=== PATIENT | male | born 1940 | race Caucasian/White ===

== ENCOUNTER 2017-04-01 12:52 | Emergency (ER) | payer MEDICARE, SELFPAY ==
[2017-04-01 12:53] VITALS: BP 111/65; PULSE 58; RESP 25; TEMP 35.9; O2SAT 97; BMI 29.0
[2017-04-01 13:13] VITALS: BP 121/100; PULSE 67; RESP 18; O2SAT 96
--- NOTE | 2017-04-01 13:20 | RAD_ITS ---
STUDY: X-RAY CHEST REASON FOR EXAM: Male, 76 years old. One-week history of cough and shortness of breath. TECHNIQUE: PA and lateral views of the chest. COMPARISON: None. FINDINGS: Hyperinflation. No acute abnormality is seen. Mild degree of increased linear markings at the lung bases suggesting mild scarring. There is no demonstrated pleural abnormality. Normal size heart. Normal mediastinum and mackenzie. Normal visualized pulmonary arteries. There is atherosclerotic tortuosity of the aortic arch and descending thoracic aorta. There are diffuse degenerative changes of the visualized thoracic spine. Normal visualized ribs, clavicles, and shoulders. There is no demonstrated abnormality of the visualized soft tissue structures of the upper abdomen. RAD/Chest PA and Lateral IMPRESSION: Hyperinflation. Mild linear scarring at the lung bases. Electronically Signed: Brant Gray MD at 14:11 EST Tel [phone], Service support ,
[2017-04-01 13:30] VITALS: BP 144/66
[2017-04-01] MEDS: 0.9% Normal Saline 1,000 ML 1000 ML IV (13:44)
[2017-04-01 13:51] LABS: Absolute Lymphocyte Count 2.92 X10^3/ul (0.83-4.51); Absolute Neutrophil Count 2.7 X10^3/uL (2.0-7.7); Basophil# 0.02 X10^3/uL; Basophil% 0.3 % (0-1); Eosinophil# 0.03 X10^3/uL; Eosinophils% 0.5 % (0-5); Hematocrit 50.2 % (40-54); Hemoglobin 17.3 g/dl (13.0-16.5); Lymphocyte # 2.92 X10^3/ul (4.0); Lymphocyte % 44.6 % (19-41); Mean Corp Hgb Conc 34.5 g/gl (32-36); Mean Platelet Vol. 10.1 fl (6.2-12.0); Monocyte# 0.78 X10^3/uL; Monocyte% 11.9 % (0-10); Neutrophil # 2.72 X10^3/uL (2.7-7.7); Neutrophil % 41.6 % (47-70); POSITIVE COUNT NO; POSITIVE DIFFERENTIAL NO; POSITIVE MORPHOLOGY NO; Platelet Count 227 K/mm3 (150-450); RBC Distribution Width CV 12.9 % (11.6-14.6); RBC Distribution Width SD 40.8 fl (35.1-43.9); Red Blood Count 5.77 M/mm3 (4.6-6.2); White Blood Count 6.5 K/mm3 (4.4-11.0)
[2017-04-01 13:58] LABS: Anion Gap 11 (5-15); BUN 21 mg/dL (7-18); BUN/Creat Ratio 14.3 RATIO (10-20); Calcium,Total 9.2 mg/dL (8.5-10.1); Chloride 102 mmol/L (98-107); Creatinine, Serum 1.47 mg/dL (0.70-1.30); EST Glomerular Filtration Rate 49 mL/min (>60); Est Glom Filt Rate - Afr Amer 60 mL/min (>60); Estimated Creatinine Clearance 52.19 ml/min; Glucose 105 mg/dL (74-106); Potassium 3.7 mmol/L (3.5-5.1); Sodium Level 136 mmol/L (136-145)
--- NOTE | 2017-04-01 15:44 | ED.VISSUMM ---
- ER Visit Summary Date of Service: 04/01/17 Chief Complaint: Flulike symptoms that started 6-7 days ago History of Present Illness: The patient is a 76 M who has no significant medical problems presents with headache, myalgias and arthralgias, nonproductive cough, generalized weakness and headache that started last week. He did not get a flu vaccine this year. He is a non-smoker. He does complain of runny nose. He also complains of decreased appetite. He has been taking NSAIDs for his discomfort. Past medical history is unremarkable. Physical Examination: Vital signs are remarkable for elevated blood pressure 144/66. He appears ill but not toxic. Head is atraumatic normocephalic. Pupils are equal round reactive. Extraocular muscles are intact. TMs are pearly white with landmarks noted. Nares patent with clear drainage. Posterior pharynx without erythema or exudate. Uvula is midline. There is no dysphonia or dysphasia. Trachea is midline. There is no stridor with auscultation of the neck. Heart is regular without murmur, gallop or rub. S1 and S2 are normal. Lungs are clear to auscultation with good movement of air bilaterally. No rash or skin lesions noted. Neuro exam is nonfocal. Test Results: View chest x-ray was obtained and unremarkable. CBC is unremarkable. Creatinine is 1.47. Baseline is 1.02. Influenza is positive for type A. Emergency Department Course and Treatment: Because of patient's symptoms chest x-ray, blood work and influenza screen was obtained. Treatment Plan: She was informed to stop taking ibuprofen or Aleve since his creatinine is elevated. He was encouraged to drink more fluids and follow-up with Rae higuera in 5-7 days to have repeat blood work to assess his BUN and creatinine. Disposition: Discharge to home with appropriate home-going instructions Impression: 1. Influenza, type a 2. Renal insufficiency, acute This note was generated with [employer] dictation software. It may contain incorrect words, spelling, and punctuation that were not noted in review of the chart prior to signing ED Disposition - Plan for ED Patient: Disposition: Home or Assisted Living Chief Complaint: Weakness Instructions: ED Flu, ED Insufficiency Renal Referrals: Rae Simms [Primary Care Provider] - 5-7 Days Additional Instructions: You need to call Rae higuera for an appointment next week to have blood work drawn to assess your BUN and creatinine Do not take any ibuprofen or Aleve.
--- NOTE | 2017-04-01 15:49 | ED.DCSUM_ITS ---
- ER Visit Summary Date of Service: 04/01/17 Chief Complaint: Flulike symptoms that started 6-7 days ago History of Present Illness: The patient is a 76 M who has no significant medical problems presents with headache, myalgias and arthralgias, nonproductive cough, generalized weakness and headache that started last week. He did not get a flu vaccine this year. He is a non-smoker. He does complain of runny nose. He also complains of decreased appetite. He has been taking NSAIDs for his discomfort. Past medical history is unremarkable. Physical Examination: Vital signs are remarkable for elevated blood pressure 144 /66. He appears ill but not toxic. Head is atraumatic normocephalic. Pupils are equal round reactive. Extraocular muscles are intact. TMs are pearly white with landmarks noted. Nares patent with clear drainage. Posterior pharynx without erythema or exudate. Uvula is midline. There is no dysphonia or dysphasia. Trachea is midline. There is no stridor with auscultation of the neck. Heart is regular without murmur, gallop or rub. S1 and S2 are normal. Lungs are clear to auscultation with good movement of air bilaterally. No rash or skin lesions noted. Neuro exam is nonfocal. Test Results: View chest x-ray was obtained and unremarkable. CBC is unremarkable. Creatinine is 1.47. Baseline is 1.02. Influenza is positive for type A. Emergency Department Course and Treatment: Because of patient's symptoms chest x -ray, blood work and influenza screen was obtained. Treatment Plan: She was informed to stop taking ibuprofen or Aleve since his creatinine is elevated. He was encouraged to drink more fluids and follow-up with Rae higuera in 5-7 days to have repeat blood work to assess his BUN and creatinine. Disposition: Discharge to home with appropriate home-going instructions Impression: 1. Influenza, type a 2. Renal insufficiency, acute This note was generated with [employer] dictation software. It may contain incorrect words, spelling, and punctuation that were not noted in review of the chart prior to signing ED Disposition - Plan for ED Patient: Disposition: Home or Assisted Living Chief Complaint: Weakness Instructions: ED Flu, ED Insufficiency Renal Referrals: Rae Simms [Primary Care Provider] - 5-7 Days Additional Instructions: You need to call Rae higuera for an appointment next week to have blood work drawn to assess your BUN and creatinine Do not take any ibuprofen or Aleve.
[2017-04-01 15:59] VITALS: BP 114/66; BP 114/76; PULSE 98; RESP 16; O2SAT 98
[2017-04-01] MEDS: Acetaminophen 325 MG Tablet 650 MG PO (16:01)
== END 2017-04-01 16:02 | disposition home or self-care (01) ==
PROVIDERS: Emergency Provider Emergency Medicine; Family Provider Nurse Practitioner; PCP Nurse Practitioner
DX: J11.1 Influenza due to unidentified influenza virus with other respiratory manifestations (principal); N28.9 Disorder of kidney and ureter, unspecified
CPT/HCPCS: 71046; 80048; 85025; 87804; 99283; J7030

== ENCOUNTER 2018-02-19 10:18 | Inpatient (IN) | payer MEDICARE, SELFPAY ==
[2018-02-19] VITALS (11 sets, daily range): BP systolic 138–158; BP diastolic 97–119; PULSE 71–105; RESP 12–18; TEMP 36.6–36.7; O2SAT 95–96; BMI 30.2; BMI 29.9
--- NOTE | 2018-02-19 10:22 | ED.RN ---
PT TO ROOM . CALLED FOR EKG
--- NOTE | 2018-02-19 10:31 | RAD_ITS ---
STUDY: X-RAY CHEST REASON FOR EXAM: Male, 77 years old. TECHNIQUE: COMPARISON: April 01, 2017 FINDINGS: The lungs are clear and expanded. There is no demonstrated pleural abnormality. Normal size heart. Normal mediastinum and mackenzie. Normal visualized pulmonary arteries. There is mild tortuosity of the thoracic aorta. The visualized bony structures are intact except for mild hypertrophic changes of the dorsal spine. The trachea is in the midline. There is no demonstrated abnormality of the visualized soft tissue structures of the upper abdomen. RAD/Chest PA and Lateral IMPRESSION: Normal x-ray examination of the chest unchanged since April 01, 2017. Electronically Signed: Micheline Agustin, at 11:06 EST Tel , Service support ,
--- NOTE | 2018-02-19 10:31 | EKG12_ITS ---
Test Reason : PAIN Blood Pressure : / mmHG Vent. Rate : 109 BPM Atrial Rate : 097 BPM P-R Int : 000 ms QRS Dur : 080 ms QT Int : 332 ms P-R-T Axes : 000 -32 055 degrees QTc Int : 447 ms Atrial fibrillation with rapid ventricular response Left axis deviation Abnormal ECG Confirmed by GARO RAMOS, SIMIN ([id number]), telegraph editor EILEEN CALDERÓN ([id number]) on 02/24/2018 12:59:49 PM Referred By: KEVIN Confirmed By:SIMIN WYMAN MD
[2018-02-19 10:55] LABS: Absolute Lymphocyte Count 3.46 X10^3/ul (0.83-4.51); Absolute Neutrophil Count 3.7 X10^3/uL (2.0-7.7); Basophil# 0.05 X10^3/uL; Basophil% 0.6 % (0-1); Eosinophil# 0.22 X10^3/uL; Eosinophils% 2.6 % (0-5); Hematocrit 46.1 % (40-54); Hemoglobin 15.6 g/dl (13.0-16.5); Lymphocyte # 3.46 X10^3/ul (4.0); Lymphocyte % 41.4 % (19-41); Mean Corp Hgb Conc 33.8 g/gl (32-36); Mean Corpuscular Hgb 29.9 pg (27.0-32.0); Mean Corpuscular Volume 88.3 fL (80-94); Mean Platelet Vol. 9.7 fl (6.2-12.0); Monocyte# 0.81 X10^3/uL; Monocyte% 9.7 % (0-10); Neutrophil # 3.72 X10^3/uL (2.7-7.7); Neutrophil % 44.6 % (47-70); POSITIVE COUNT NO; POSITIVE DIFFERENTIAL NO; POSITIVE MORPHOLOGY NO; Platelet Count 243 K/mm3 (150-450); RBC Distribution Width CV 13.4 % (11.6-14.6); RBC Distribution Width SD 43.2 fl (35.1-43.9); Red Blood Count 5.22 M/mm3 (4.6-6.2); White Blood Count 8.4 K/mm3 (4.4-11.0)
[2018-02-19 11:10] LABS: Anion Gap 8 (5-15); BUN 12 mg/dL (7-18); BUN/Creat Ratio 11.5 RATIO (10-20); Calcium,Total 8.9 mg/dL (8.5-10.1); Chloride 109 mmol/L (98-107); Creatinine, Serum 1.04 mg/dL (0.70-1.30); EST Glomerular Filtration Rate 73 mL/min (>60); Est Glom Filt Rate - Afr Amer 89 mL/min (>60); Estimated Creatinine Clearance 72.58 ml/min; Glucose 107 mg/dL (74-106); Potassium 4.2 mmol/L (3.5-5.1); Sodium Level 142 mmol/L (136-145); Thyroid Stim Hormone (TSH) 0.92 uIU/mL (0.358-3.74)
[2018-02-19] MEDS: Metoprolol Tartrate 5 MG/5 ML Vial IV (11:12)
[2018-02-19] MEDS: Enoxaparin 120 MG/0.8 ML Syringe SC ×2 (11:12→22:09)
[2018-02-19 11:28] LABS: BNP,B-Type NATRIURETIC PEPTIDE 126.1 pg/mL (0-100)
--- NOTE | 2018-02-19 11:54 | ED.DCSUM_ITS ---
- ER Visit Summary Date of Service: 02/19/18 Chief Complaint: Atraumatic right shoulder pain, chest discomfort, weight gain, swelling in ankles and hands History of Present Illness: The patient is a 77 M who has no significant cardiac history and only has history of thyroid disease who presents with atraumatic right shoulder pain or months. He also reports intermittent anterior chest discomfort. He does not endorse that this is precipitated by activity or made worse with activity. He does report at times it is better with rest. He denies history of congestive heart failure. He denies orthopnea or PND. He does report shortness of breath but did not denies cough, orthopnea or PND. He states he may be is more short of breath with activity. The shortness of breath has been going on for 1-2 months. He reports a 10 pound weight gain over the past month and increased swelling of his ankles and hands over the past several weeks. He also complains of generalized weakness. He states his last TSH was elevated. His medication was adjusted. Physical Examination: Vital signs noted and remarkable for blood pressure of 148/107 heart rate per triage was 71 however monitor reveals A. fib with a rate varying between 110 and 125. Head is atraumatic normocephalic. Pupils are equal round reactive. Extraocular muscles are intact. TMs are pearly white with landmarks noted. Nares patent with no drainage. Posterior pharynx without erythema or exudate. Uvula is midline. There is no dysphonia or dysphasia. Trachea is midline. There is no stridor with auscultation of the neck. Heart is irregularly irregular and rapid. Lungs reveal fine rales left base posteriorly otherwise no auscultatory findings on lung exam. Abdomen soft nontender no palpable semester down bruit. There is bilateral pedal edema. Distal pulses are palpable. There is slight swelling of both hands. Patient is alert and oriented ?3. Motor is 5 over 5. Sensory is intact. DTRs are symmetric with no clonus or Babinski sign. Cranial 2 through 12 are intact. Cerebellar testing is normal. There is no leg pain, swelling, discoloration, asymmetry, leg vein distention or palpable cords on the distribution of deep venous system. Test Results: EKG reveals atrial fibrillation rate of 109. Chest x-ray reveals chronic changes with tortuous aorta. White count is normal. Troponin is normal. BNP is slightly elevated 126. TSH is 0.92. Emergency Department Course and Treatment: To evaluate patient's symptoms EKG was obtained, because of the A. fib and complaint of shortness of breath troponin was obtained to evaluate for ischemia and BNP to evaluate for possible CHF. Because he had an abnormal TSH TSH was repeated. CBC was obtained to assess white count as well as H&H. Electrode panel was obtained to assess citlali ctrolytes and more importantly renal function. Treatment Plan: Patient did receive metoprolol. Heart rate is improved. Disposition: PCU 23 observation for workup of new onset A. fib with RVR Impression: 1. A. fib with RVR, new onset 2. History of hypothyroidism, history of Graves' disease This note was generated with [employer] dictation software. It may contain incorrect words, spelling, and punctuation that were not noted in review of the chart prior to signing ED Disposition - Plan for ED Patient: Chief Complaint: General Illness Referrals: Rae Simms NP-C [Primary Care Provider] -
--- NOTE | 2018-02-19 12:55 | PCM.HP.STD ---
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 Qualified Code(s): E03.8 - Other specified hypothyroidism; E06.3 - Autoimmune thyroiditis (2) New onset a-fib Status: Acute (3) Atrial fibrillation with RVR Status: Acute (4) DM type 2 (diabetes mellitus, type 2) Status: Chronic Qualifiers: Diabetes mellitus assisted insulin use: without assisted use Chronic kidney disease stage: unspecified stage History of Present Illness Date of Admission: 02/19/18 Chief Complaint: Left shoulder pain - 1 day The patient is a 77 year old M with PMHx of Haylie's disease, on Synthroid comes in with complaints of left shoulder, anterior chest wall pain ongoing for some weeks. Patient had felt irregular heart rate. He noticed this morning that his heart rate was not showing up on his blood pressure machine. He has noticed that also the last couple of days. He feels that his hands and feet are slightly swollen and stiff. Denies any fever or chills or shortness of breath or diaphoresis or dizziness. He attributed his left shoulder and chest wall pain to have improved to relieve prove that was heavy several days ago. He had used the leaf blower consistently for weeks. In the emergency department, his temperature was 90 8F, heart rate of 71, respiratory is 18, SPO2 is 95% on room air, blood pressure is 148/107. His admitting blood work showed RBC count of 8.4, hemoglobin 15.6, platelet count of 243, BMP was essentially unremarkable. Troponins x1 was negative, BNP was 126.1, TSH 0.92. EKG showed atrial fibrillation, new onset, with RVR, heart rate 109. Past Medical History Past Medical History (Chronic Problems): Chronic Problems Hypothyroidism (Chronic) DM type 2 (diabetes mellitus, type 2) (Chronic) Allergies latex Allergy (Verified 02/19/18 10:21) Hives Home Medications: Ambulatory Orders Medication Instructions Recorded Levothyroxine Sodium [Synthroid] 175 mcg PO DAILY 04/01/17 Surgical History: appendectomy Psychiatric History: No pertinent psych hx Lives: Spouse/ Significant Other Smoking Status: Never smoker Tobacco Use: Non-smoker Alcohol: None Drugs: None - *Family History Maternal History Items: Diabetes, Stroke Paternal History Items: Hypertension Sibling History Items: Diabetes, Heart Disease Review of Systems Constitutional: Reports: Weakness. Denies: Anorexia, Chills, Fever, Weight Change Eyes: Denies: Blurred vision, Cataracts, Conjunctivae Inflammation, Double vision HEENT: Denies: Difficulty Hearing, Difficulty Swallowing, Head Aches, Hearing Changes, Sinus Congestion, Sinus Drainage Cardiovascular: Reports: Chest Pain, Chest Pressure. Denies: Claudication, Light Headedness, Orthopnea, Palpitations, Paroxysmal Noc. Dyspnea, Syncope Respiratory: Denies: Cough, Shortness of Breath, Shortness of breath at rest, Shortness of breath upon exertion, Sputum production Gastrointestinal: Denies: Abdominal Pain, Hematemesis, Hematochezia, Nausea, Vomiting Genitourinary: Denies: Dysuria, Incontinence Musculoskeletal: Reports: Joint stiffness, Joint swelling - hands and feet. Denies: Joint Pain, Joint Tenderness Skin: Denies: Pruritis, Rash, Wounds Neurological: Denies: Numbness, Tingling, Focal weakness Psychiatric: Denies: Anxiety, Depression, Homicidal Ideations, Suicidal Ideations Hematologic/ Lymphatic: Denies: Easy Bruising, Easy Bleeding VTE Information - Inpt Only VTE Present on Admission: No VTE Pharm Prophylaxis ordered?: Yes Patient Problems: Active and Suspected Problems New onset a-fib (Acute) Atrial fibrillation with RVR (Acute) - Physical Exam General: Alert, Oriented x3, Cooperative, No apparent distress HEENT: Atraumatic, PERRLA, EOMI, Normocephalic Oral: Moist Mucosa Neck: Supple, No JVD, Negative Carotid Bruits Lungs: Clear to auscultation, Normal air movement Cardiovascular: Normal S1, Normal S2, No murmurs, Irregular Rate Abdomen: Bowel Sounds Present, Soft, Non Tender, Non-Distended, No Hepato-splenomegaly Extremities: No edema Skin: No rashes, No breakdown Musculoskeletal: No Tenderness to Palpation of Joints or Extremities Lymphatic: No Cervical, Supraclavicular, or Inguinal Adenopathy Neurological: Cranial nerves II-XII grossly intact, Neuro grossly intact Psych/Mental Status: Normal Affect, Appropriate Vital Signs Temp Pulse Resp BP Pulse Ox 98 F 82 14 147/99 H 96 02/19/18 10:19 02/19/18 12:16 02/19/18 12:16 02/19/18 12:16 02/19/18 11:13 Oxygen Delivery Method Room Air Weight: 115.666 kg Body Mass Index (BMI) 30.2 Laboratory Tests Past 24 Hrs 02/19/18 02/19/18 02/19/18 10:36 10:36 10:36 WBC 8.4 RBC 5.22 Hgb 15.6 Hct 46.1 MCV 88.3 MCH 29.9 MCHC 33.8 RDW 13.4 RDW Differential 43.2 Plt Count 243 MPV 9.7 Immature Gran % (Auto) 1.100 H Neut % (Auto) 44.6 L Lymph % (Auto) 41.4 H [place] % (Auto) 9.7 Eos % (Auto) 2.6 Baso % (Auto) 0.6 Absolute Neuts (auto) 3.7 Absolute Lymphs (auto) 3.46 Total Counted Not Reportable Sodium 142 Potassium 4.2 Chloride 109 H Carbon Dioxide 25.0 Anion Gap 8 BUN 12 Creatinine 1.04 Estim Creat Clear Calc 72.58 Est GFR (MDRD) Af Amer 89 Est GFR (MDRD) Non-Af 73 BUN/Creatinine Ratio 11.5 Glucose 107 H Calcium 8.9 Troponin I < 0.015 B-Natriuretic Peptide 126.1 H TSH 0.92 Assessment/Plan All Active Problems New onset a-fib (Acute) Atrial fibrillation with RVR (Acute) 77 year old M with PMHx of Haylie's disease, on Synthroid comes in with complaints of left shoulder, anterior chest wall pain ongoing for some weeks and to be in A. fib with RVR. 1. A. fib with RVR, new onset, Handy Vascor of 3, given IV metoprolol, Lovenox subcu in the ED Plan: PCU, monitor on telemetry, 2D echo, metoprolol 12.5 mg p.o. twice daily, continue on Lovenox subcu, cardiology consult 2. 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 Generalized muscle/joint pain, unclear etiology, will start patient on scheduled Tylenol, would switch to as needed from tomorrow 4. DVT prophylaxis-on therapeutic Lovenox Code Visit Inpatient E&M: 12619 Init Hosp L3
--- NOTE | 2018-02-19 13:35 | ECHOCS_ITS ---
Reason For Study: New onset Afib/Flutter Procedure This was a 2D Doppler, Color Flow transthoracic echocardiogram. The study was technically difficult. Contrast injection was performed. Exam performed portable in patient room. Left Ventricle Left ventricular systolic function is normal. The estimated ejection fraction is 55 %. Unable to assess diastolic dysfunction. No regional wall motion abnormalities noted. Right Ventricle Normal RV size. Normal systolic function. Atria The left atrium is moderately enlarged. The right atrium is mildly enlarged. No doppler evidence for ASD. Mitral Valve There is no mitral annular calcification. Normal mitral valve. Trivial mitral valve insufficiency. Tricuspid Valve Normal tricuspid valve. Mild tricuspid valve insufficiency. Unable to estimate RV systolic pressure/pulmonary artery pressure due to technically difficult study. Aortic Valve Trisinus/trileaflet aortic valve. Normal aortic valve. Pulmonic Valve The pulmonic valve is not well visualized. Great Vessels Borderline to mildly dilated aortic root. Pericardium/Pleural No pericardial effusion. Medication Diluted definity 5ml given slow IV push to enhance endocardial definition. MMode/2D Measurements & Calculations RVDd: 4.4 cm Ao root diam: 3.9 cm LAV(MOD-bp): 124.8 ml LAV(MOD-bp) Indexed: 50.6 ml/m2 LAV(MOD-sp2): 127.5 ml LAV(MOD-sp4): 121.9 ml LA A4 area: 33.0 cm2 RA A4 area: 26.8 cm2 Doppler Measurements & Calculations MV E max nelson: 72.4 cm/sec Ao V2 max: 78.3 cm/sec LV V1 max: 72.4 cm/sec Ao max P.5 mmHg LV V1 max P.1 mmHg PA V2 max: 52.7 cm/sec Interpretation Summary The study was technically difficult. Contrast injection was performed. Left ventricular systolic function is normal. The estimated ejection fraction is 55 %. The right atrium is mildly enlarged. The left atrium is moderately enlarged. Trivial mitral valve insufficiency. Mild tricuspid valve insufficiency. Borderline to mildly dilated aortic root Unable to estimate RV systolic pressure/pulmonary artery pressure due to technically difficult study. Unable to assess diastolic dysfunction. Ordering Physician: Shereen Palacios Referring Physician: Rae Simms Performed By: Vargas Denis RCS
[2018-02-19] MEDS: Acetaminophen 500 MG Tablet 1000 MG PO ×2 (15:44→22:08)
[2018-02-19 15:55] LABS: Bedside Glucose 94 mg/dL (70-110)
--- NOTE | 2018-02-19 20:19 | PCM.CONS.C ---
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 He states he has noted recently, which may go back over the last approximately 1 month or so, differences in his heart rate and blood pressure which are unusual for him. He also notes that he feels as if he has not had the energy that he has had in the past. However he has remained active. He states that he has been outside pushing his leaf blower and splitting wood and other than musculoskeletal discomfort from using his upper extremities has not had any other concerning chest discomfort or difficulty breathing. He has not noted palpitations. There is been no near syncope or syncope. He states based upon his sensation today of diminished energy or stamina he elected to be brought to the hospital by his family for further evaluation and care. He was found to have concerns of atrial fibrillation. He was thought to have increased heart rate. He was treated with rate limiting medication. He was placed in the PCU for further evaluation and care. Thus far his cardiac enzymes have been negative. His ECG has demonstrated atrial fibrillation with no acute changes. He is also undergone evaluation with a transthoracic echocardiogram. His overall LV systolic function was thought to be normal with an estimated LVEF of 55%. He did have evidence of biatrial enlargement (left greater than right). He states he does have a history of hyperlipidemia. He states he had been on statin therapy in the past but could not tolerated based upon myalgias. [] Past Medical History Allergies/Adverse Reactions: Allergies latex Allergy (Verified 02/19/18 10:21) Hives Home Medications: Ambulatory Orders Medication Instructions Recorded Levothyroxine Sodium [Synthroid] 175 mcg PO DAILY 04/01/17 Past Medical History (Chronic Problems): Chronic Problems Hypothyroidism (Chronic) DM type 2 (diabetes mellitus, type 2) (Chronic) Surgical History: appendectomy Psychiatric History: No pertinent psych hx - *Family History Maternal History Items: Diabetes, Stroke Paternal History Items: Hypertension Sibling History Items: Diabetes, Heart Disease Lives: Spouse/ Significant Other Smoking Status: Never smoker Tobacco Use: Non-smoker Alcohol: None Drugs: None Review of Systems - Review of Systems General: Reports: Fatigue, Weakness. Denies: Fever, Night Sweats Cardiovascular: Denies: Chest Discomfort, Shortness of Breath, Orthopnea, PND, Peripheral Edema, Palpitations, Lightheadedness, Dizziness, Near Syncope, Syncope Respiratory: Denies: Cough, Sputum Production, Hemoptysis Gastrointestinal: Denies: Hematemesis, Hematochezia, Melena Genitourinary: Denies: Dysuria, Hematuria Skin: Denies: Rash Subjectve: This is a 77-year-old white male who appears to be resting comfortably at the moment in no acute distress. Objective: Vital Signs Temp Pulse Resp BP Pulse Ox 97.8 F 105 H 16 145/100 H 95 02/19/18 13:32 02/19/18 15:00 02/19/18 13:32 02/19/18 13:32 02/19/18 13:32 Oxygen Delivery Method Room Air Weight: 252 lb Body Mass Index (BMI) 29.9 Intake and Output for Last 24 Hours 02/17/18 02/18/18 02/19/18 23:59 23:59 23:59 Intake Total 720 / 720 Output Total 0 / 0 Balance 720 / 720 General: Awake, Alert, Oriented x 3, Cooperative, No Acute Distress HEENT: Atraumatic, Normocephalic, PERRL, EOMI, Sclera Non Icteric Oral: Moist Mucosa Neck: Supple, Good ROM, No JVD Lungs: Clear to auscultation Cardiovascular: Irregular Rhythm, Normal S1, Normal S2 Vascular: No Carotid Bruits Abdomen: Bowel Sounds Present, Soft, Non Tender Extremities: No edema Neurological: No Focal Motor or Sensory Deficit Psych/Mental Status: Appropriate, Normal Affect 02/19/18 10:36: WBC 8.4, RBC 5.22, Hgb 15.6, Hct 46.1, MCV 88.3, MCH 29.9, MCHC 33.8, RDW 13.4, RDW Differential 43.2, Plt Count 243, MPV 9.7, Immature Gran % (Auto) 1.100 H, Neut % (Auto) 44.6 L, Lymph % (Auto) 41.4 H, Roberts % (Auto) 9.7, Eos % (Auto) 2.6, Baso % (Auto) 0.6, Absolute Neuts (auto) 3.7, Total Counted Not Reportable 02/19/18 10:36: Sodium 142, Potassium 4.2, Chloride 109 H, Carbon Dioxide 25.0, Anion Gap 8, BUN 12, Creatinine 1.04, Est GFR (MDRD) Af Amer 89, Est GFR (MDRD) Non-Af 73, BUN/Creatinine Ratio 11.5, Glucose 107 H, Calcium 8.9, Troponin I < 0.015 02/19/18 10:36: B-Natriuretic Peptide 126.1 H 02/19/18 14:10: Troponin I < 0.015 02/19/18 16:46: Troponin I < 0.015 02/19/18 16:46: Hemoglobin A1c 6.0 Rhythm: Atrial fibrillation EKG: Atrial fibrillation ECHO: As noted above CXR: Preliminary evaluation: No acute cardiopulmonary disease process appreciated Assessment/Plan 1. Atrial fibrillation At the present time he is being monitored. His cardiac rate appears to have come under better control. He has been placed on anticoagulant therapy with subcutaneous Lovenox. His cardiac enzymes are negative. His ECG is demonstrated no new acute changes. His echocardiogram demonstrates overall preserved left ventricular wall motion and systolic function. He will undergo further evaluation based upon a variety of his symptoms and findings with an exercise tolerance test/imaging study. As he is in atrial fibrillation with variable ventricular response this may include a pharmacologic stress nuclear imaging study to evaluate for evidence of myocardial ischemia. Depending upon the findings he may or may not need further evaluation with diagnostic cardiac catheterization. In the interim he will continue medical management as best as possible. 2. Hyperlipidemia The patient will have his lipid labs checked. Depending upon the findings he may need to reconsider attempting lipid-lowering therapy. 3. Hyperglycemia The patient reportedly has a history of hyperglycemia. He will need to continue medical management. 4. Thyroid disorder The patient states that he was diagnosed with Graves' disease in the past. He states he was treated with radioactive iodine. He has been on medical management. This note was generated with [facility] [employer] software. It may contain incorrect words, spelling, and punctuation that were not noted in checking the note before signing.
[2018-02-19] MEDS: Metoprolol Tartrate 25 MG Tablet PO (22:08)
[2018-02-19 22:25] LABS: Bedside Glucose 78 mg/dL (70-110)
[2018-02-20] VITALS (13 sets, daily range): BP systolic 119–153; BP diastolic 84–107; PULSE 66–104; RESP 16–18; TEMP 36.3–36.7; O2SAT 93–97
--- NOTE | 2018-02-20 04:23 | EKG12_ITS ---
Test Reason : CP Blood Pressure : / mmHG Vent. Rate : 076 BPM Atrial Rate : 066 BPM P-R Int : 000 ms QRS Dur : 088 ms QT Int : 392 ms P-R-T Axes : 000 -35 023 degrees QTc Int : 441 ms Atrial fibrillation Left axis deviation Abnormal ECG Confirmed by GARO RAMOS, SIMIN ([id number]), market editor EILEEN CALDERÓN ([id number]) on 02/24/2018 1:46:35 PM Referred By: DR OTOOLE Confirmed By:SIMIN WYMAN MD
[2018-02-20] MEDS: Ibuprofen 600 MG Tablet PO (05:03)
[2018-02-20] MEDS: Acetaminophen 500 MG Tablet 1000 MG PO (05:04)
[2018-02-20] MEDS: Levothyroxine 175 MCG Tablet PO (05:04)
[2018-02-20 05:28] LABS: Absolute Lymphocyte Count 3.86 X10^3/ul (0.83-4.51); Absolute Neutrophil Count 3.7 X10^3/uL (2.0-7.7); Basophil# 0.02 X10^3/uL; Basophil% 0.2 % (0-1); Eosinophil# 0.16 X10^3/uL; Eosinophils% 1.9 % (0-5); Hematocrit 46.1 % (40-54); Hemoglobin 15.7 g/dl (13.0-16.5); Lymphocyte # 3.86 X10^3/ul (4.0); Lymphocyte % 44.8 % (19-41); Mean Corp Hgb Conc 34.1 g/gl (32-36); Mean Corpuscular Hgb 29.7 pg (27.0-32.0); Mean Corpuscular Volume 87.1 fL (80-94); Monocyte# 0.81 X10^3/uL; Monocyte% 9.4 % (0-10); Platelet Count 252 K/mm3 (150-450); RBC Distribution Width CV 13.5 % (11.6-14.6); RBC Distribution Width SD 43.2 fl (35.1-43.9); Red Blood Count 5.29 M/mm3 (4.6-6.2); White Blood Count 8.6 K/mm3 (4.4-11.0)
[2018-02-20 05:39] LABS: POSITIVE COUNT NO; POSITIVE DIFFERENTIAL NO; POSITIVE MORPHOLOGY NO
[2018-02-20 05:47] LABS: ALB/GLOB Ratio 1.1 RATIO (0.9-2.4); AST(SGOT) 24 U/L (15-37); Alanine Aminotransfer ALT/SGPT 31 U/L (16-61); Albumin, Serum 3.5 g/dL (3.2-5.0); Alkaline Phosphatase 61 U/L (45-117); Anion Gap 10 (5-15); BUN 12 mg/dL (7-18); BUN/Creat Ratio 11.7 RATIO (10-20); Bilirubin, Direct 0.16 mg/dL (0.00-0.30); Chloride 108 mmol/L (98-107); Cholesterol 216 mg/dL (200); Creatinine, Serum 1.03 mg/dL (0.70-1.30); EST Glomerular Filtration Rate 74 mL/min (>60); Est Glom Filt Rate - Afr Amer 90 mL/min (>60); Estimated Creatinine Clearance 73.29 ml/min; Globulin 3.1 g/dL (2.2-4.2); Glucose 92 mg/dL (74-106); High Density Lipoprotein 49 mg/dL; Protein, Total 6.6 g/dL (6.4-8.2); Sodium Level 143 mmol/L (136-145); Triglycerides 243 mg/dL; Very Low Density Lipoprotein 49 mg/dL (5-40)
[2018-02-20 05:52] LABS: Prothrombin Time (Protime)PT. 13.4 SECONDS (11.7-14.9)
[2018-02-20 06:55] LABS: Bedside Glucose 103 mg/dL (70-110)
[2018-02-20] MEDS: Metoprolol Tartrate 25 MG Tablet PO (12:10)
[2018-02-20 12:25] LABS: Bedside Glucose 159 mg/dL (70-110)
--- NOTE | 2018-02-20 13:01 | STRESSREP ---
Stress Test Report Date: 02/20/2018 Procedure: Pharmacologic stress nuclear imaging study Indications: Atrial fibrillation Consent: Per the patient Procedure: The patient underwent pharmacologic (Regadenoson) evaluation with a peak heart rate of 130 beats per minute (92 predicted maximal heart rate) and a peak blood pressure of 142/60 mmHg. The baseline ECG demonstrated atrial fibrillation. The peak pharmacologic ECG demonstrated no obvious ECG changes. There were occasional PVCs during recovery. [There was no complaint of chest discomfort during pharmacologic infusion or recovery]. The examination was discontinued secondary to completion of protocol. Impression: 1. Pharmacologic (Regadenoson) evaluation 2. Peak pharmacologic ECG with no obvious ECG changes. 3. There were occasional PVCs during recovery. 4. Nuclear images pending Myocardial perfusion imaging study: Technique: The patient was injected with 14.7 millicuries of technetium 99m Cardiolite and subsequently rest SPECT Cardiolite nuclear imaging was obtained in the horizontal long, vertical long, and short axis views. The patient underwent pharmacologic (Regadenoson) evaluation with a peak heart rate of 130 beats per minute (92 % percent predicted maximal heart rate) and a peak blood pressure of 142/60 mmHg. The patient was injected with 44.6 millicuries of technetium 99m Cardiolite and subsequently stress SPECT Cardiolite nuclear imaging was obtained in the horizontal long, vertical long, and short axis views. A gated Cardiolite study at peak stress was obtained. Interpretation: Rest and stress SPECT Cardiolite nuclear imaging status post realignment, normalization, and attenuation correction areas of extracardiac/gastrointestinal tracer uptake near the inferior segments. There is a small area of diminished tracer uptake near the inferior apical/lateral apical segments which appears to be somewhat more prominent following stress as opposed to rest.. [There is end systolic thickening and brightening]. [The gated Cardiolite study demonstrates myocardial thickening and inward wall motion]. The reported LVEF is 57 %. Impression: 1. Rest and stress SPECT Cardiolite nuclear imaging demonstrating a small area of diminished tracer uptake near the inferior apical/lateral apical segments which appear to be somewhat more prominent following stress as opposed to rest potentially compatible with the effects of shifting soft tissue attenuation/artifact and are physiologic apical thinning, however, an area of myocardial ischemia cannot necessarily be excluded. 2. The gated Cardiolite study reports an LVEF of 57 %. This note was generated with Dragon dictation software. It may contain incorrect words, spelling, and punctuation that were not noted in checking the note before signing.
--- NOTE | 2018-02-20 13:30 | CASEMGMT ---
SUZNANE VASQUEZ NOTE: Reviewed SUERO form with pt and . Explained OBS vs IN-patient status and questions answered. Pt informed he does not meet IN-patient criteria at this time. Pt refused to sign SUERO form at this time, stating someone told me I am an IN-patient status when they were doing all of these testings. Pt also stated, they had me sign one of these in the ER too and I was reluctant to sign then. Pt informed signing the form is not agreeing with the status, but is just acknowledging that he was informed that he is not meeting IN-pt criteria and therefore remains OBS status. Pt states he wants to talk to the doctor 1st before signing. Pt also provided with MCR information packet Are you and Inpatient or Outpatient? Instructed to ask to talk with CM if he has any other questions. Cadence SMITH RN, CM
[2018-02-20] MEDS: Enoxaparin 120 MG/0.8 ML Syringe SC ×2 (14:01→20:27)
--- NOTE | 2018-02-20 14:01 | RAD_ITS ---
STUDY: X-RAY - LEFT SHOULDER REASON FOR EXAM: Male, 77 years old. Chronic left shoulder pain. TECHNIQUE: view(s) of the shoulder. COMPARISON: None. FINDINGS: There is moderate degenerative arthrosis of the glenohumeral articulation. There is degenerative arthrosis of the acromioclavicular joint without inferior osseous spur formation. Normal acromion. There is no acute fracture, dislocation or destructive osseous pathology. Normal humeral head and visualized proximal humerus. The soft tissue structures are unremarkable. Normal visualized pulmonary apex. RAD/Shoulder min 2 Views IMPRESSION: There are degenerative changes of the left shoulder. Electronically Signed: Seamus Tolentino DO at 18:28 EST Tel [phone], Service support ,
--- NOTE | 2018-02-20 14:16 | CASEMGMT ---
Insurance Review for In-Network facilities for [employer] insurance if transfer is recommended, per [employer] website: [facility], [facility] ([facility]), [facility], [facility], [facility], [facility], [facility], [facility], [facility]. Cadence LOPEZN SUZANNE CM
[2018-02-20] MEDS: oxyCODONE 5 MG Tablet PO ×2 (15:04→22:05)
--- NOTE | 2018-02-20 15:06 | PCM.PN.HOSP ---
Patient Problems: Active and Suspected Problems New onset a-fib (Acute) Atrial fibrillation with RVR (Acute) HLD (hyperlipidemia) (Acute) Subjective: Patient was seen and examined. Complains of pain in the left shoulder. Had a stress test done today that was abnormal. Will be going for left heart cath. Objective: Physical Exam General: Alert, Oriented x3, Cooperative, No apparent distress HEENT: Atraumatic, PERRLA, EOMI, Normocephalic Oral: Moist Mucosa Neck: Supple, No JVD, Negative Carotid Bruits Lungs: Clear to auscultation, Normal air movement Cardiovascular: Normal S1, Normal S2, No murmurs, Irregular Rate Abdomen: Bowel Sounds Present, Soft, Non Tender, Non-Distended, No Hepato-splenomegaly Extremities: No edema Skin: No rashes, No breakdown Musculoskeletal: No Tenderness to Palpation of Joints or Extremities Lymphatic: No Cervical, Supraclavicular, or Inguinal Adenopathy Neurological: Cranial nerves II-XII grossly intact, Neuro grossly intact Psych/Mental Status: Normal Affect, Appropriate Vitals/I&O's: Vital Signs Temp Pulse Resp BP Pulse Ox 97.6 F L 101 H 16 125/87 H 93 02/20/18 12:02 02/20/18 12:30 02/20/18 12:02 02/20/18 12:10 02/20/18 12:02 Oxygen Delivery Method Room Air Weight: 114.305 kg Body Mass Index (BMI) 29.9 Intake and Output for Last 24 Hours 02/18/18 02/19/18 02/20/18 23:59 23:59 23:59 Intake Total 720 / 720 540 / 540 Output Total 0 / 0 Balance 720 / 720 540 / 540 Laboratory Results 02/19/18 15:48: POC Glucose 94 02/19/18 16:46: Troponin I < 0.015 02/19/18 16:46: Hemoglobin A1c 6.0 02/19/18 22:07: POC Glucose 78 02/20/18 05:00: Sodium 143, Potassium 4.0, Chloride 108 H, Carbon Dioxide 25.0, Anion Gap 10, BUN 12, Creatinine 1.03, Estim Creat Clear Calc 73.29, Est GFR (MDRD) Af Amer 90, Est GFR (MDRD) Non-Af 74, BUN/Creatinine Ratio 11.7, Glucose 92, Calcium 9.0, Total Bilirubin 0.70, Direct Bilirubin 0.16, AST 24, ALT 31, Alkaline Phosphatase 61, Total Protein 6.6, Albumin 3.5, Globulin 3.1, Albumin/Globulin Ratio 1.1, Triglycerides 243 H, Cholesterol 216 H, LDL Cholesterol 118, VLDL Cholesterol 49 H, HDL Cholesterol 49 02/20/18 05:00: WBC 8.6, RBC 5.29, Hgb 15.7, Hct 46.1, MCV 87.1, MCH 29.7, MCHC 34.1, RDW 13.5, RDW Differential 43.2, Plt Count 252, MPV 10.0, Immature Gran % (Auto) 0.700, Neut % (Auto) 43.0 L, Lymph % (Auto) 44.8 H, Hettinger % (Auto) 9.4, Eos % (Auto) 1.9, Baso % (Auto) 0.2, Absolute Neuts (auto) 3.7, Absolute Lymphs (auto) 3.86, Total Counted Not Reportable 02/20/18 05:00: PT 13.4, INR 1.0, APTT 48.0 H 02/20/18 06:46: POC Glucose 103 02/20/18 12:16: POC Glucose 159 H Current Medications Acetaminophen (Tylenol) 1,000 mg PO Q8 [facility] Last Admin: 02/20/18 14:02 Dose: Not Given Atorvastatin Calcium (Lipitor) 80 mg PO QHS [facility] Bisacodyl (Dulcolax) 5 mg PO DAILY PRN PRN Reason: Constipation Dextrose (D50w Syringe) 0 gm IV X1 PRN; Protocol PRN Reason: Hypoglycemia Enoxaparin Sodium (Lovenox) 120 mg 1 mg/kg (120 mg) SC Q12 [facility] Last Admin: 02/20/18 14:01 Dose: 120 mg Glucagon () 1 mg IM .X1 PRN PRN Reason: Hypoglycemia Ibuprofen (Motrin) 400 mg PO Q6H PRN PRN PRN Reason: MILD PAIN (1-3/10) Insulin Human Lispro (Humalog Kwikpen (Bkc)) 0 unit SQ ACHS [facility]; Protocol Last Admin: 02/20/18 12:17 Dose: Not Given Levothyroxine Sodium (Synthroid) 175 mcg PO DAILY@0600 [facility] Last Admin: 02/20/18 05:04 Dose: 175 mcg Metoprolol Tartrate (Lopressor (Beta Rodger)) 25 mg PO BID [place] Last Admin: 02/20/18 12:10 Dose: 25 mg Ondansetron HCl (Zofran) 4 mg IV Q8H PRN PRN PRN Reason: NAUSEA/VOMITING Oxycodone HCl (Oxyir) 5 mg PO Q4H PRN PRN PRN Reason: SEVERE PAIN (6-10/10) Last Admin: 02/20/18 15:04 Dose: 5 mg Senna/Docusate Sodium (Senokot-S, Mare-Colace) 2 tablet PO DAILY PRN PRN PRN Reason: CONSTIPATION Medical Necessity - Tobacco Use Smoking Status: Never smoker Tobacco Use: Non-smoker Assessment/Plan All Active Problems New onset a-fib (Acute) Atrial fibrillation with RVR (Acute) HLD (hyperlipidemia) (Acute) 77 year old M with PMHx of Haylie's disease, on Synthroid comes in with complaints of left shoulder, anterior chest wall pain ongoing for some weeks and to be in A. fib with RVR. 1. Left shoulder pain, likely secondary to degenerative changes, on tylenol, motrin prn, oxycodone prn 2. Abnormal stress test, seen mostly in apical lateral/inferior lateral, going for LHC in am 3. A. fib with RVR, new onset, [id number] score is 3, rate controlled, on metoprolol, on Lovenox bid 4. 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 DVT prophylaxis-on therapeutic Lovenox Code Visit Inpatient E&M: 79241 Subs Hosp L2
--- NOTE | 2018-02-20 15:10 | PN_ITS ---
Patient Problems: Active and Suspected Problems New onset a-fib (Acute) Atrial fibrillation with RVR (Acute) HLD (hyperlipidemia) (Acute) Subjective: Patient was seen and examined. Complains of pain in the left shoulder. Had a stress test done today that was abnormal. Will be going for left heart cath. Objective: Physical Exam General: Alert, Oriented x3, Cooperative, No apparent distress HEENT: Atraumatic, PERRLA, EOMI, Normocephalic Oral: Moist Mucosa Neck: Supple, No JVD, Negative Carotid Bruits Lungs: Clear to auscultation, Normal air movement Cardiovascular: Normal S1, Normal S2, No murmurs, Irregular Rate Abdomen: Bowel Sounds Present, Soft, Non Tender, Non-Distended, No Hepato- splenomegaly Extremities: No edema Skin: No rashes, No breakdown Musculoskeletal: No Tenderness to Palpation of Joints or Extremities Lymphatic: No Cervical, Supraclavicular, or Inguinal Adenopathy Neurological: Cranial nerves II-XII grossly intact, Neuro grossly intact Psych/Mental Status: Normal Affect, Appropriate Vitals/I&O's: Vital Signs Temp Pulse Resp BP Pulse Ox 97.6 F L 101 H 16 125/87 H 93 02/20/18 12:02 02/20/18 12:30 02/20/18 12:02 02/20/18 12:10 02/20/18 12:02 Oxygen Delivery Method Room Air Weight: 114.305 kg Body Mass Index (BMI) 29.9 Intake and Output for Last 24 Hours 02/18/18 02/19/18 02/20/18 23:59 23:59 23:59 Intake Total 720 / 720 540 / 540 Output Total 0 / 0 Balance 720 / 720 540 / 540 Laboratory Results 02/19/18 15:48: POC Glucose 94 02/19/18 16:46: Troponin I < 0.015 02/19/18 16:46: Hemoglobin A1c 6.0 02/19/18 22:07: POC Glucose 78 02/20/18 05:00: Sodium 143, Potassium 4.0, Chloride 108 H, Carbon Dioxide 25.0, Anion Gap 10, BUN 12, Creatinine 1.03, Estim Creat Clear Calc 73.29, Est GFR (MDRD) Af Amer 90, Est GFR (MDRD) Non-Af 74, BUN/Creatinine Ratio 11.7, Glucose 92, Calcium 9.0, Total Bilirubin 0.70, Direct Bilirubin 0.16, AST 24, ALT 31, Alkaline Phosphatase 61, Total Protein 6.6, Albumin 3.5, Globulin 3.1, Albumin/Globulin Ratio 1.1, Triglycerides 243 H, Cholesterol 216 H, LDL Cholesterol 118, VLDL Cholesterol 49 H, HDL Cholesterol 49 02/20/18 05:00: WBC 8.6, RBC 5.29, Hgb 15.7, Hct 46.1, MCV 87.1, MCH 29.7, MCHC 34.1, RDW 13.5, RDW Differential 43.2, Plt Count 252, MPV 10.0, Immature Gran % (Auto) 0.700, Neut % (Auto) 43.0 L, Lymph % (Auto) 44.8 H, Yancey % (Auto) 9.4, Eos % (Auto) 1.9, Baso % (Auto) 0.2, Absolute Neuts (auto) 3.7, Absolute Lymphs (auto) 3.86, Total Counted Not Reportable 02/20/18 05:00: PT 13.4, INR 1.0, APTT 48.0 H 02/20/18 06:46: POC Glucose 103 02/20/18 12:16: POC Glucose 159 H Current Medications Acetaminophen (Tylenol) 1,000 mg PO Q8 [facility] Last Admin: 02/20/18 14:02 Dose: Not Given Atorvastatin Calcium (Lipitor) 80 mg PO QHS [facility] Bisacodyl (Dulcolax) 5 mg PO DAILY PRN PRN Reason: Constipation Dextrose (D50w Syringe) 0 gm IV X1 PRN; Protocol PRN Reason: Hypoglycemia Enoxaparin Sodium (Lovenox) 120 mg 1 mg/kg (120 mg) SC Q12 [facility] Last Admin: 02/20/18 14:01 Dose: 120 mg Glucagon () 1 mg IM .X1 PRN PRN Reason: Hypoglycemia Ibuprofen (Motrin) 400 mg PO Q6H PRN PRN PRN Reason: MILD PAIN (1-3/10) Insulin Human Lispro (Humalog Kwikpen (Bkc)) 0 unit SQ ACHS [facility]; Protocol Last Admin: 02/20/18 12:17 Dose: Not Given Levothyroxine Sodium (Synthroid) 175 mcg PO DAILY@0600 [facility] Last Admin: 02/20/18 05:04 Dose: 175 mcg Metoprolol Tartrate (Lopressor (Beta Rodger)) 25 mg PO BID [place] Last Admin: 02/20/18 12:10 Dose: 25 mg Ondansetron HCl (Zofran) 4 mg IV Q8H PRN PRN PRN Reason: NAUSEA/VOMITING Oxycodone HCl (Oxyir) 5 mg PO Q4H PRN PRN PRN Reason: SEVERE PAIN (6-10/10) Last Admin: 02/20/18 15:04 Dose: 5 mg Senna/Docusate Sodium (Senokot-S, Mare-Colace) 2 tablet PO DAILY PRN PRN PRN Reason: CONSTIPATION Medical Necessity - Tobacco Use Smoking Status: Never smoker Tobacco Use: Non-smoker Assessment/Plan All Active Problems New onset a-fib (Acute) Atrial fibrillation with RVR (Acute) HLD (hyperlipidemia) (Acute) 77 year old M with PMHx of Haylie's disease, on Synthroid comes in with complaints of left shoulder, anterior chest wall pain ongoing for some weeks and to be in A. fib with RVR. 1. Left shoulder pain, likely secondary to degenerative changes, on tylenol, motrin prn, oxycodone prn 2. Abnormal stress test, seen mostly in apical lateral/inferior lateral, going for LHC in am 3. A. fib with RVR, new onset, [id number] score is 3, rate controlled, on metoprolol, on Lovenox bid 4. 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 DVT prophylaxis-on therapeutic Lovenox Code Visit Inpatient E&M: 83279 Subs Hosp L2
[2018-02-20] MEDS: Ibuprofen 400 MG Tablet PO (17:09)
--- NOTE | 2018-02-20 17:10 | CASEMGMT ---
RN CHRISTINA ASSESSMENT Face to Face with patient for initial transition planning/care coordination assessment. RN CHRISTINA introduced self and role at [facility]. Pt voices understanding and consents to assessment at this time. Pt resting in bed in no distress at this time. Pt is A/O at this time and aswers all questions approrpriately. Care providers, pharmacy, and demographics verified/updated at this time. PCP: Demi Specialists: none Preferred Pharmacy: [facility] Retail on day of d/c only. Insurance: [employer] [facility] Prescription Benefit: Yes Living Will/HPOA: States does not have LW or HCPOA . Interested in more information but states does not want to talk with SW at this time to complete paperwork. Provided information on advanced directives and given Social Service rac card with number to call if chooses in the future to utilize [facility] social work for advanced directive completion. Instructed to have CM notified if he decides he would like to complete paperwork while in the hospital. Educated patient that, if patient so chooses, can come back to [facility] and meet with a SW as an outpatient to complete health care advanced directives. Patient expresses understanding. LNOK: Living Arrangements: Lives with in a one-story home. Has 2 steps to enter home and stairs to basement. Denies difficulty with stairs. States is independent with all ADL's and home mgmt tasks. Transportation: Pt states drives self and states no transportation concerns at this time. DME/HHC: Denies using any DME and denies needs. Pt wishes to return home and states has no concerns with going home at time of discharge. Pt states does not smoke or drink ETOH. CM to follow for any discharge planning/needs. Pt voices no concerns/needs at this time. Advised pt to ask for CM if any further questions/concerns/needs arise. Voices understanding. Plan: Home Cadence SMITH RN, CM
--- NOTE | 2018-02-20 18:28 | PCM.PN.CARD ---
Subjectve: The patient has been up and about. He states he still feels somewhat tired, fatigued, and/or drained . Objective: Vital Signs Temp Pulse Resp BP Pulse Ox 97.6 F L 66 18 119/84 H 94 02/20/18 17:52 02/20/18 17:52 02/20/18 17:52 02/20/18 17:52 02/20/18 17:52 Oxygen Delivery Method Room Air Weight: 252 lb Body Mass Index (BMI) 29.9 Intake and Output for Last 24 Hours 02/18/18 02/19/18 02/20/18 23:59 23:59 23:59 Intake Total 720 / 720 890 / 890 Output Total 0 / 0 Balance 720 / 720 890 / 890 General: Awake, Alert, Oriented x 3, Cooperative, No Acute Distress HEENT: Atraumatic, Normocephalic, PERRL, EOMI, Sclera Non Icteric Oral: Moist Mucosa Neck: Supple, Good ROM, No JVD Lungs: Clear to auscultation Cardiovascular: Irregular Rhythm, Normal S1, Normal S2 Abdomen: Bowel Sounds Present, Soft, Non Tender Extremities: No Cyanosis, No Clubbing, No edema Neurological: No Focal Motor or Sensory Deficit Psych/Mental Status: Appropriate, Normal Affect 02/20/18 05:00: Sodium 143, Potassium 4.0, Chloride 108 H, Carbon Dioxide 25.0, Anion Gap 10, BUN 12, Creatinine 1.03, Est GFR (MDRD) Af Amer 90, Est GFR (MDRD) Non-Af 74, BUN/Creatinine Ratio 11.7, Glucose 92, Calcium 9.0, Total Bilirubin 0.70, Direct Bilirubin 0.16, Triglycerides 243 H, Cholesterol 216 H, LDL Cholesterol 118, VLDL Cholesterol 49 H, HDL Cholesterol 49 02/20/18 05:00: WBC 8.6, RBC 5.29, Hgb 15.7, Hct 46.1, MCV 87.1, MCH 29.7, MCHC 34.1, RDW 13.5, RDW Differential 43.2, Plt Count 252, MPV 10.0, Immature Gran % (Auto) 0.700, Neut % (Auto) 43.0 L, Lymph % (Auto) 44.8 H, [place] % (Auto) 9.4, Eos % (Auto) 1.9, Baso % (Auto) 0.2, Absolute Neuts (auto) 3.7, Total Counted Not Reportable 02/20/18 05:00: PT 13.4, INR 1.0, APTT 48.0 H Rhythm: Atrial fibrillation EKG: Atrial fibrillation; left axis deviation Medical Necessity - Tobacco Use Smoking Status: Never smoker Tobacco Use: Non-smoker Assessment/Plan 1. Atrial fibrillation At the present time he is being monitored. Will continue rate control with adjustment based upon what appears to be an element of increased heart rate. He will continue anticoagulant therapy. His cardiac enzymes are negative. His ECG is demonstrated no new acute changes. His echocardiogram demonstrates overall preserved left ventricular wall motion and systolic function. He did undergo further evaluation with a pharmacologic stress nuclear imaging study. This did raise concern about an element of myocardial ischemia that could not be excluded. Thus with the patient's symptoms, objective findings, etc. was felt prudent that the patient undergo further evaluation with diagnostic cardiac catheterization. The procedure and risks were discussed with the patient. He was agreeable to this approach. 2. Hyperlipidemia His lipids are elevated. He was encouraged to reattempt statin therapy to bring his lipids and thus his cardiovascular risk factors under better control. 3. Hyperglycemia The patient reportedly has a history of hyperglycemia. He will need to continue medical management. 4. Thyroid disorder The patient states that he was diagnosed with Graves' disease in the past. He states he was treated with radioactive iodine. He has been on medical management. This note was generated with [employer] software. It may contain incorrect words, spelling, and punctuation that were not noted in checking the note before signing.
[2018-02-20] MEDS: TICAGRELOR 90 MG TABLET 180 MG PO (20:26)
[2018-02-20] MEDS: Metoprolol Tartrate 50 MG Tablet PO (20:32)
[2018-02-20] MEDS: Aspirin E.C. 325 MG Tablet PO (20:33)
[2018-02-20 21:43] LABS: Bacteria 0 SEEN /hpf (None Seen); Mucous, Urine 0 SEEN /hpf (<or=2+); Red Blood Cells-Urine 0 SEEN /hpf (0-5); Squamous Epithelial Cells - UA 0 SEEN /hpf (0-5)
[2018-02-20 21:46] LABS: Color, Urine Yellow (Yellow); Glucose, Dipstick Normal (Normal); Ketone-Dipstick Negative (Negative); Leukocyte Esterase-Dipstick Negative /ul (Negative); Nitrite-Dipstick Negative (Negative); Occult Blood-Urine Negative /ul (Negative); Protein-Dipstick Negative (Negative); Specific Gravity, Urine 1.015 (1.002-1.030); Urine Bilirubin Dipstick Negative (Negative); Urine Clarity Clear (Clear); Urine Urobilinogen Normal (Normal)
[2018-02-20 21:52] LABS: White Blood Cells 0-5 SEEN /hpf (0-5)
[2018-02-20 23:25] LABS: Bedside Glucose 89 mg/dL (70-110)
[2018-02-21] VITALS (23 sets, daily range): BP systolic 102–153; BP diastolic 64–95; PULSE 68–105; RESP 15–18; TEMP 36.4–36.9; O2SAT 91–96
[2018-02-21 04:57] LABS: Hematocrit 45.6 % (40-54); Hemoglobin 15.8 g/dl (13.0-16.5); Mean Corp Hgb Conc 34.6 g/gl (32-36); Mean Corpuscular Hgb 30.3 pg (27.0-32.0); Mean Corpuscular Volume 87.4 fL (80-94); Mean Platelet Vol. 9.8 fl (6.2-12.0); Platelet Count 246 K/mm3 (150-450); RBC Distribution Width CV 13.5 % (11.6-14.6); RBC Distribution Width SD 43.1 fl (35.1-43.9); Red Blood Count 5.22 M/mm3 (4.6-6.2); White Blood Count 8.4 K/mm3 (4.4-11.0)
[2018-02-21 05:00] LABS: Scan Indicated on CBC? Y/N NO
--- NOTE | 2018-02-21 05:00 | EKG12_ITS ---
Test Reason : MORNING EKG Blood Pressure : / mmHG Vent. Rate : 080 BPM Atrial Rate : 092 BPM P-R Int : 000 ms QRS Dur : 090 ms QT Int : 368 ms P-R-T Axes : 000 -41 -03 degrees QTc Int : 424 ms Atrial fibrillation Left axis deviation Abnormal ECG Confirmed by GARO RAMOS, SIMIN ([id number]), acquisitions editor EILEEN CALDERÓN ([id number] on 02/24/2018 1:32:37 PM Referred By: XIANG Confirmed By:SIMIN WYMAN MD
[2018-02-21 05:06] LABS: International Normalized Ratio 1.1; Prothrombin Time (Protime)PT. 13.9 SECONDS (11.7-14.9)
[2018-02-21 05:07] LABS: Partial Thromboplast Time 54.1 Seconds (24.1-36.2)
[2018-02-21 05:09] LABS: Anion Gap 8 (5-15); BUN 13 mg/dL (7-18); BUN/Creat Ratio 11.5 RATIO (10-20); Calcium,Total 9.2 mg/dL (8.5-10.1); Chloride 108 mmol/L (98-107); Creatinine, Serum 1.13 mg/dL (0.70-1.30); EST Glomerular Filtration Rate 67 mL/min (>60); Est Glom Filt Rate - Afr Amer 80 mL/min (>60); Glucose 101 mg/dL (74-106); Sodium Level 141 mmol/L (136-145)
[2018-02-21] MEDS: Levothyroxine 175 MCG Tablet PO (05:57)
[2018-02-21] MEDS: TICAGRELOR 90 MG TABLET PO (05:58)
[2018-02-21] MEDS: Aspirin E.C. 81 MG Tablet PO (05:58)
[2018-02-21] MEDS: Metoprolol Tartrate 50 MG Tablet PO ×2 (05:59→23:01)
--- NOTE | 2018-02-21 06:09 | NURSING ---
Patient refused blood glucose one touch this am.
[2018-02-21] MEDS: 0.9% Normal Saline 1,000 ML 75 ML IV (08:15)
--- NOTE | 2018-02-21 08:31 | CL.D_ITS ---
Patient Name: SILVANO MARTINEZ Study Date: 02/21/2018 Performing: Damon Coy MD Ht: 77 inches 196 cm : 1940 Wt: 251.7 lbs 114 kg Age: 77 Gender: male BSA: 2.47 PROCEDURE(S) PERFORMED [id number]/COR/LV CLINICAL PROFILE AND INDICATIONS Indications: Suspected CAD Heart Failure: None Stress/Imaging Stress Test w/SPECT MPI: Yes Result: PositiveStress Test with SPECT MPI: Positive Angina Classification Anginal Classification w/in 2 Weeks: CCS III CAD Presentations: Other: chest pain; fatigue CONCLUSIONS Normal Left Ventricular End Diastolic Pressure Normal LV size, wall motion,and systolic function LVEF: by LV gram 55 % [place] Multivessel CAD (mild luminal irregularities) RECOMMENDATIONS Risk factor modification Medical therapy DESCRIPTION OF PROCEDURE The patient arrived to the procedure lab. The risks and benefits of the procedure as well as a full d escription of our services here and current unavailability of surgical backup were fully explained to the patient and/or their significant other prior to the catheterization. The Timeout was completed, verifying the correct patient and procedure. The patient's procedural site was prepped and draped in the usual fashion. Local anesthetic was given subcutaneously to right radial region with Lidocaine 2% . Using a modified Seldinger technique, arterial access was obtained via the right radial artery, a 6 Fr sheath was inserted. Left Coronary Artery selective angiography was performed in multiple views u sing a 5 Fr. 4.0 [place] catheter. Right Coronary Artery selective angiography was then performed in mu ltiple views using a 5 Fr. 4.0 [place] catheter. Left Ventriculography was performed in [place]OM[place]ON projection using a 5 Fr. Pigtail catheter. LV to AO pullback pressures were then recorded.The arterial sheath was pulled and a TR Band was applied for hemostasis 14 cc air CORONARY ANGIOGRAPHY DOMINANCE: Right Dominant LEFT HEART ASSESSMENT Left Ventricular Ejection Fraction: by LV Gram 55 % Normal LV wall motion Elevated Left Ventricular End Diastolic Pressure LVEDP: 9 mmHg LEFT MAIN: Angiographically normal LEFT ANTERIOR DECENDING ARTERY: Mild luminal irregularities CIRCUMFLEX ARTERY: Mild luminal irregularities RIGHT CORONARY ARTERY: Mild luminal irregularities VALVE FINDINGS: Normal Aortic Valve function Normal Mitral Valve function AORTIC ROOT: Angiographically normal COMPLICATIONS No Complications PROCEDURE MEDICATIONS Fentanyl 50 mcg IV Versed 1 mg IV Fentanyl 50 mcg IV Versed 1 mg IV Oxygen: 2 L/min via nasal cannula Oxygen: 3 L/min via nasal cannula Oxygen: 5 L/min via nasal cannula Heparin diluted in 23cc Heparinized saline. Patient given 10cc IA of this solution. 02/21/2018 07:47 :39 Verapamil 2.5mg, Ntg 100mcgs, 2000 units of Heparin diluted in 23cc Heparinized saline. Patient give n 10cc IA of this solution. 02/21/2018 07:47:39 SUMMARY OF HEMODYNAMIC DATA Time AIR REST ECG 07:27:46 AO 97/70 (83) SA 07:49:47 AO 97/75 (86) 07:50:44 LV 117/-1, 12 07:57:42 LV 115/-3, 9 07:58:02 LV 123/6, 25 07:58:56 LV 120/3, 14 07:59:02 LVp 123/4, 13 07:59:07 AOp 124/80 (97) 07:59:12 Signed By Damon Coy MD On 02/21/2018 08:29:10 Damon Coy MD
[2018-02-21] MEDS: Flecainide 100 MG Tablet PO ×2 (09:50→23:03)
--- NOTE | 2018-02-21 13:17 | PN.CARD_ITS ---
Subjectve: The patient underwent diagnostic cardiac catheterization earlier this day. He underwent the procedure without obvious adverse event. Objective: Vital Signs Temp Pulse Resp BP Pulse Ox 97.9 F 88 18 110/73 95 02/21/18 12:06 02/21/18 13:07 02/21/18 12:06 02/21/18 12:06 02/21/18 12:06 Oxygen Delivery Method Room Air Weight: 252 lb Body Mass Index (BMI) 29.9 Intake and Output for Last 24 Hours 02/19/18 02/20/18 02/21/18 23:59 23:59 23:59 Intake Total 720 / 720 890 / 890 278 / 278 Output Total 0 / 0 Balance 720 / 720 890 / 890 278 / 278 General: Awake, Alert, Oriented x 3, Cooperative, No Acute Distress HEENT: Atraumatic, Normocephalic, PERRL, EOMI, Sclera Non Icteric Oral: Moist Mucosa Neck: Supple, Good ROM, No JVD Lungs: Clear to auscultation Cardiovascular: Irregular Rhythm, Normal S1, Normal S2 Vascular: Normal Radial Pulses Abdomen: Bowel Sounds Present, Soft, Non Tender Extremities: No Cyanosis, No Clubbing, No edema Neurological: No Focal Motor or Sensory Deficit Psych/Mental Status: Appropriate 02/20/18 21:15: Urine Color Yellow, Urine Clarity Clear, Urine pH 7.0, Ur Specific [place] 1.015, Urine Protein Negative, Urine Glucose (UA) Normal, Urine Ketones Negative, Urine Occult Blood Negative, Urine Nitrite Negative, Urine Bilirubin Negative, Urine Urobilinogen Normal, Ur Leukocyte Esterase Negative, Urine RBC 0 SEEN, Urine WBC 0-5 SEEN 02/21/18 04:52: WBC 8.4, RBC 5.22, Hgb 15.8, Hct 45.6, MCV 87.4, MCH 30.3, MCHC 34.6, RDW 13.5, RDW Differential 43.1, Plt Count 246, MPV 9.8 02/21/18 04:52: PT 13.9, INR 1.1, APTT 54.1 H 02/21/18 04:52: Sodium 141, Potassium 4.0, Chloride 108 H, Carbon Dioxide 25.0, Anion Gap 8, BUN 13, Creatinine 1.13, Est GFR (MDRD) Af Amer 80, Est GFR (MDRD) Non-Af 67, BUN/Creatinine Ratio 11.5, Glucose 101, Calcium 9.2 Rhythm: Atrial fibrillation Cardiac cath: Please see official report: Preliminary: No angiographically significant appearing CAD; overall preserved LV systolic function Medical Necessity - Tobacco Use Smoking Status: Never smoker Tobacco Use: Non-smoker Assessment/Plan 1. Atrial fibrillation At the present time he is being monitored. He will continue medical management. This will include rate limiting therapy. As he does not appear to have any angiographically significant CAD he can be placed on antiarrhythmic therapy such as flecainide/Tambocor. He will also transition to an oral systemic anticoagulant. The patient will need to be monitored on antiarrhythmic therapy for a minimum of 4-5 doses. This would be to monitor for any obvious adverse cardiac dysrhythmia event or pro arrhythmia. If he does not regain sinus rhythm then over time he can be considered for synchronized biphasic DC cardioversion. 2. CAD His cardiac catheterization suggested mild luminal irregularities. He will continue risk factor evaluation care as deemed appropriate. 3. Hyperlipidemia His lipids are elevated. He was encouraged to reattempt statin therapy to bring his lipids and thus his cardiovascular risk factors under better control. 4. Hyperglycemia The patient reportedly has a history of hyperglycemia. He will need to continue medical management. 5. Thyroid disorder The patient states that he was diagnosed with Graves' disease in the past. He states he was treated with radioactive iodine. He has been on medical management. This note was generated with [employer] dictation software. It may contain incorrect words, spelling, and punctuation that were not noted in checking the note before signing.
[2018-02-21] MEDS: Acetaminophen 500 MG Tablet 1000 MG PO (14:41)
[2018-02-21] MEDS: Rivaroxaban 20 MG Tablet PO (17:33)
--- NOTE | 2018-02-21 18:36 | PCM.PROGNOTE ---
Patient Problems: Active and Suspected Problems New onset a-fib (Acute) Atrial fibrillation with RVR (Acute) HLD (hyperlipidemia) (Acute) Subjective: Patient was seen and examined today, he had a cardiac catheterization today which showed nonocclusive mild coronary artery disease with a normal LV function. Patient has been started on flecainide and initially was placed on Eliquis today but I called his pharmacy and Xarelto is less expensive than Eliquis and the patient has normal renal function and I okayed this medication with cardiology today. - Physical Exam General: Alert, Oriented x3, Cooperative, No apparent distress, Well developed HEENT: Atraumatic, PERRLA, EOMI, Normocephalic Oral: Moist Mucosa Neck: Supple, Trachea Midline, Thyroid Normal Size and Texture Lungs: Clear to auscultation, Normal air movement, No rhonchi, No wheeze Cardiovascular: PMI Normal, Irregular Rate, No rub noted Abdomen: Bowel Sounds Present, Soft, Non Tender, Non-Distended, No hernias noted Extremities: No clubbing, Capillary Refill Less than 3 Seconds Skin: No rashes, No breakdown Musculoskeletal: No Tenderness to Palpation of Joints or Extremities Neurological: Cranial nerves II-XII grossly intact, Neuro grossly intact, Sensory exam intact to light touch and pain, Coordination normal Psych/Mental Status: Normal Affect, Appropriate, Alert and oriented to time, place, person, mood and affect Vital Signs Temp Pulse Resp BP Pulse Ox 97.5 F L 86 18 102/64 94 02/21/18 16:30 02/21/18 16:30 02/21/18 16:30 02/21/18 16:30 02/21/18 16:30 Oxygen Delivery Method Room Air Weight: 114.305 kg Body Mass Index (BMI) 29.9 Intake and Output for Last 24 Hours 02/19/18 02/20/18 02/21/18 23:59 23:59 23:59 Intake Total 720 / 720 890 / 890 518 / 518 Output Total 0 / 0 Balance 720 / 720 890 / 890 518 / 518 Laboratory Tests Past 24 Hrs 02/20/18 02/21/18 02/21/18 21:15 04:52 04:52 WBC 8.4 RBC 5.22 Hgb 15.8 Hct 45.6 MCV 87.4 MCH 30.3 MCHC 34.6 RDW 13.5 RDW Differential 43.1 Plt Count 246 MPV 9.8 PT 13.9 INR 1.1 APTT 54.1 H Sodium Potassium Chloride Carbon Dioxide Anion Gap BUN Creatinine Estim Creat Clear Calc Est GFR (MDRD) Af Amer Est GFR (MDRD) Non-Af BUN/Creatinine Ratio Glucose Calcium Urine Color Yellow Urine Clarity Clear Urine pH 7.0 Ur Specific [place] 1.015 Urine Protein Negative Urine Glucose (UA) Normal Urine Ketones Negative Urine Occult Blood Negative Urine Nitrite Negative Urine Bilirubin Negative Urine Urobilinogen Normal Ur Leukocyte Esterase Negative Urine RBC 0 SEEN Urine WBC 0-5 SEEN Ur Squamous Epith Cells 0 SEEN Urine Bacteria 0 SEEN Urine Mucus 0 SEEN 02/21/18 04:52 WBC RBC Hgb Hct MCV MCH MCHC RDW RDW Differential Plt Count MPV PT INR APTT Sodium 141 Potassium 4.0 Chloride 108 H Carbon Dioxide 25.0 Anion Gap 8 BUN 13 Creatinine 1.13 Estim Creat Clear Calc 66.80 Est GFR (MDRD) Af Amer 80 Est GFR (MDRD) Non-Af 67 BUN/Creatinine Ratio 11.5 Glucose 101 Calcium 9.2 Urine Color Urine Clarity Urine pH Ur Specific [place] Urine Protein Urine Glucose (UA) Urine Ketones Urine Occult Blood Urine Nitrite Urine Bilirubin Urine Urobilinogen Ur Leukocyte Esterase Urine RBC Urine WBC Ur Squamous Epith Cells Urine Bacteria Urine Mucus POC Glucose 02/20/18 22:01 POC Glucose 89 Medical Necessity - Tobacco Use Smoking Status: Never smoker Tobacco Use: Non-smoker Assessment/Plan All Active Problems New onset a-fib (Acute) Atrial fibrillation with RVR (Acute) HLD (hyperlipidemia) (Acute) #1 new onset atrial fibrillation-patient is now on flecainide and he will be monitored on telemetry, patient was started on Xarelto 20 mg daily today, he is currently on a beta-mehdi #2 nonocclusive coronary artery disease-patient will continue receiving a statin, is also currently on aspirin #3 hypothyroidism #4 hyperlipidemia Patient does not have type 2 diabetes, I have corrected his active problem list Code Visit Inpatient E&M: 07354 Init Hosp L3
[2018-02-22] VITALS (12 sets, daily range): BP systolic 102–133; BP diastolic 65–77; PULSE 63–86; RESP 16–18; TEMP 36.4–36.9; O2SAT 94–96
--- NOTE | 2018-02-22 05:55 | EKG12_ITS ---
Test Reason : Blood Pressure : / mmHG Vent. Rate : 092 BPM Atrial Rate : 441 BPM P-R Int : 000 ms QRS Dur : 082 ms QT Int : 384 ms P-R-T Axes : 000 -37 007 degrees QTc Int : 474 ms Atrial fibrillation Left axis deviation Abnormal ECG Confirmed by GARO RAMOS, SIMIN ([id number]), editorial writer EILEEN CALDERÓN ([id number]) on 02/26/2018 3:06:34 PM Referred By: Confirmed By:SIMIN WYMAN MD
[2018-02-22 06:10] LABS: Hematocrit 46.7 % (40-54); Hemoglobin 15.5 g/dl (13.0-16.5)
[2018-02-22 06:22] LABS: Anion Gap 6 (5-15); BUN 14 mg/dL (7-18); Calcium,Total 9.2 mg/dL (8.5-10.1); Chloride 108 mmol/L (98-107); Creatinine, Serum 1.27 mg/dL (0.70-1.30); EST Glomerular Filtration Rate 58 mL/min (>60); Est Glom Filt Rate - Afr Amer 70 mL/min (>60); Estimated Creatinine Clearance 59.44 ml/min; Glucose 103 mg/dL (74-106); Potassium 4.4 mmol/L (3.5-5.1); Sodium Level 142 mmol/L (136-145)
[2018-02-22] MEDS: Acetaminophen 500 MG Tablet 1000 MG PO ×2 (06:37→13:19)
[2018-02-22] MEDS: Levothyroxine 175 MCG Tablet PO (06:38)
[2018-02-22] MEDS: Flecainide 100 MG Tablet PO ×2 (10:23→20:58)
[2018-02-22] MEDS: Aspirin E.C. 81 MG Tablet PO (10:23)
[2018-02-22] MEDS: Metoprolol Tartrate 50 MG Tablet PO ×2 (10:23→20:58)
--- NOTE | 2018-02-22 11:33 | PCM.PN.CARD ---
Subjectve: The patient is awake and alert. He states overall he does believe he is symptomatically improved compared to admission to the hospital. He has had no adverse events from medical management at this time. Objective: Vital Signs Temp Pulse Resp BP Pulse Ox 97.7 F L 72 16 133/74 H 94 02/22/18 09:45 02/22/18 11:17 02/22/18 09:45 02/22/18 09:45 02/22/18 09:45 Oxygen Delivery Method Room Air Weight: 252 lb Body Mass Index (BMI) 29.9 Intake and Output for Last 24 Hours 02/20/18 02/21/18 02/22/18 23:59 23:59 23:59 Intake Total 890 / 890 518 / 518 490 / 490 Balance 890 / 890 518 / 518 490 / 490 General: Awake, Alert, Oriented x 3, Cooperative, No Acute Distress HEENT: Atraumatic, Normocephalic, PERRL, EOMI, Sclera Non Icteric Oral: Moist Mucosa Neck: Supple, Good ROM, No JVD Lungs: Clear to auscultation Cardiovascular: Irregular Rhythm, Normal S1, Normal S2 Vascular: Normal Radial Pulses Abdomen: Bowel Sounds Present, Soft, Non Tender Extremities: No Cyanosis, No Clubbing, No edema Neurological: No Focal Motor or Sensory Deficit Psych/Mental Status: Appropriate 02/22/18 05:45: Hgb 15.5, Hct 46.7 02/22/18 05:45: Sodium 142, Potassium 4.4, Chloride 108 H, Carbon Dioxide 28.0, Anion Gap 6, BUN 14, Creatinine 1.27, Est GFR (MDRD) Af Amer 70, Est GFR (MDRD) Non-Af 58 L, BUN/Creatinine Ratio 11.0, Glucose 103, Calcium 9.2 Rhythm: Atrial fibrillation EKG: Atrial fibrillation Medical Necessity - Tobacco Use Smoking Status: Never smoker Tobacco Use: Non-smoker Assessment/Plan 1. Atrial fibrillation At the present time he is being monitored. He will continue medical management. This will include rate limiting therapy. As he does not appear to have any angiographically significant CAD he can be placed on antiarrhythmic therapy such as flecainide/Tambocor. He will also transition to an oral systemic anticoagulant. The patient will need to be monitored on antiarrhythmic therapy for a minimum of 4-5 doses. This would be to monitor for any obvious adverse cardiac dysrhythmia event or pro arrhythmia. If he does not regain sinus rhythm then over time he can be considered for synchronized biphasic DC cardioversion. 2. CAD His cardiac catheterization suggested mild luminal irregularities. He will continue risk factor evaluation care as deemed appropriate. 3. Hyperlipidemia His lipids are elevated. He was agreeable to reattempting low-dose statin therapy. 4. Hyperglycemia The patient reportedly has a history of hyperglycemia. He will need to continue medical management. 5. Thyroid disorder The patient states that he was diagnosed with Graves' disease in the past. He states he was treated with radioactive iodine. He has been on medical management. Comment: The above was discussed and reviewed with patient, spouse, and the [facility] staff. This note was generated with [employer] dictation software. It may contain incorrect words, spelling, and punctuation that were not noted in checking the note before signing.
--- NOTE | 2018-02-22 12:06 | PCM.PROGNOTE ---
Patient Problems: Active and Suspected Problems New onset a-fib (Acute) Atrial fibrillation with RVR (Acute) HLD (hyperlipidemia) (Acute) Subjective: Patient was seen and examined today, he has no specific complaints, he has no complaints of chest pain or shortness of breath. He remains in atrial fibrillation with a controlled rate. - Physical Exam General: Alert, Oriented x3, Cooperative HEENT: Atraumatic, PERRLA, EOMI, Normocephalic Oral: Moist Mucosa Neck: Supple, No JVD, Negative Carotid Bruits Lungs: Clear to auscultation, Normal air movement, No rhonchi, No wheeze Cardiovascular: No murmurs, PMI Normal, Irregular Rate, No rub noted Abdomen: Bowel Sounds Present, Soft, Non Tender, Non-Distended, No hernias noted Extremities: No clubbing, No cyanosis, No edema, Capillary Refill Less than 3 Seconds Skin: No rashes, No breakdown Musculoskeletal: No Tenderness to Palpation of Joints or Extremities Neurological: Cranial nerves II-XII grossly intact, Neuro grossly intact, Sensory exam intact to light touch and pain, Coordination normal Psych/Mental Status: Normal Affect, Appropriate, Alert and oriented to time, place, person, mood and affect Vital Signs Temp Pulse Resp BP Pulse Ox 97.7 F L 72 16 133/74 H 94 02/22/18 09:45 02/22/18 11:17 02/22/18 09:45 02/22/18 09:45 02/22/18 09:45 Oxygen Delivery Method Room Air Weight: 114.305 kg Body Mass Index (BMI) 29.9 Intake and Output for Last 24 Hours 02/20/18 02/21/18 02/22/18 23:59 23:59 23:59 Intake Total 890 / 890 518 / 518 490 / 490 Balance 890 / 890 518 / 518 490 / 490 Laboratory Tests Past 24 Hrs 02/22/18 02/22/18 05:45 05:45 Hgb 15.5 Hct 46.7 Sodium 142 Potassium 4.4 Chloride 108 H Carbon Dioxide 28.0 Anion Gap 6 BUN 14 Creatinine 1.27 Estim Creat Clear Calc 59.44 Est GFR (MDRD) Af Amer 70 Est GFR (MDRD) Non-Af 58 L BUN/Creatinine Ratio 11.0 Glucose 103 Calcium 9.2 Medical Necessity - Tobacco Use Smoking Status: Never smoker Tobacco Use: Non-smoker Assessment/Plan All Active Problems New onset a-fib (Acute) Atrial fibrillation with RVR (Acute) DM type 2 (diabetes mellitus, type 2) (Ruled-out) HLD (hyperlipidemia) (Acute) #1 new onset atrial fibrillation-patient is now on flecainide and he will be monitored on telemetry, patient will continue Xarelto #2 nonocclusive coronary artery disease-patient will continue receiving a statin, is also currently on aspirin, I discussed the need for the patient to take a statin when he is discharged home #3 hypothyroidism #4 hyperlipidemia Additional note: I also talked with the patient's who was in the room today when I examined the patient. Code Visit Inpatient E&M: 42345 Subs Hosp L2
[2018-02-22] MEDS: Rivaroxaban 20 MG Tablet PO (18:01)
[2018-02-22] MEDS: Loperamide 2 MG Capsule PO (18:04)
--- NOTE | 2018-02-22 19:33 | NURSING ---
Reviewed and agreed on all charting with Brad Newman RN
[2018-02-22] MEDS: Atorvastatin Calcium 20 MG Tablet PO (20:58)
[2018-02-23 03:00] VITALS: PULSE 83
[2018-02-23 03:09] VITALS: BP 114/72; PULSE 72; RESP 18; TEMP 36.6; O2SAT 98
[2018-02-23] MEDS: Levothyroxine 175 MCG Tablet PO (05:36)
--- NOTE | 2018-02-23 05:55 | EKG12_ITS ---
Test Reason : AM EKG Blood Pressure : / mmHG Vent. Rate : 087 BPM Atrial Rate : 267 BPM P-R Int : 000 ms QRS Dur : 086 ms QT Int : 398 ms P-R-T Axes : 000 -41 030 degrees QTc Int : 478 ms Atrial fibrillation Left axis deviation Abnormal ECG Confirmed by GARO RAMOS, SIMIN ([id number]), magazine editor EILEEN CALDERÓN ([id number]) on 02/26/2018 3:05:42 PM Referred By: DR IZAGUIRRE Confirmed By:SIMIN WYMAN MD
[2018-02-23 06:57] VITALS: PULSE 75
[2018-02-23 09:09] VITALS: BP 103/74; PULSE 76; RESP 16; TEMP 36.3; O2SAT 95
[2018-02-23 09:18] VITALS: PULSE 76
[2018-02-23] MEDS: Flecainide 100 MG Tablet PO (09:18)
[2018-02-23] MEDS: Aspirin E.C. 81 MG Tablet PO (09:18)
[2018-02-23] MEDS: Metoprolol Tartrate 50 MG Tablet PO (09:18)
--- NOTE | 2018-02-23 09:45 | PCM.DC ---
- Discharge Diagnoses Current Active Problems: Current Active and Chronic Problems Hypothyroidism (Chronic) New onset a-fib (Acute) Atrial fibrillation with RVR (Acute) HLD (hyperlipidemia) (Acute) You will use the following diet at home:: No restrictions Your food should be the consistency of: Regular Your liquids should be the consistency of: Regular/Thin Discharge Activity: Return to Normal Activity Weight Bearing Status: Full weight bearing Allergies/Adverse Reactions: Allergies latex Allergy (Verified 02/19/18 10:21) Hives Medications to take at Discharge Levothyroxine Sodium [Synthroid] 175 mcg PO DAILY 04/01/17 Aspirin E.C. [Ecotrin] 81 mg PO DAILY@0800 tablet 02/23/18 Atorvastatin Calcium [Lipitor] 20 mg PO QHS #30 tablet 02/23/18 Flecainide [Tambocor] 100 mg PO BID #60 tablet 02/23/18 Metoprolol Tartrate [Lopressor (beta mehdi)] 50 mg PO BID #60 tablet 02/23/18 Rivaroxaban [Xarelto] 20 mg PO DINNER tablet 02/23/18 The following prescriptions were given: Atorvastatin Calcium [Lipitor] 20 mg PO QHS #30 tablet Flecainide [Tambocor] 100 mg PO BID #60 tablet Metoprolol Tartrate [Lopressor (beta mehdi)] 50 mg PO BID #60 tablet Primary Care Physician: Rae Simms NP-C [Primary Care Provider] - Please follow up with your Primary Care Physician in: in 2-3 weeks Test Results: Test results from this visit will be discussed in further detail at your follow-up appointment, if applicable. Please Follow Up With: Damon Coy MD When: as directed
--- NOTE | 2018-02-23 09:48 | DCINST_ITS ---
- Discharge Diagnoses Current Active Problems: Current Active and Chronic Problems Hypothyroidism (Chronic) New onset a-fib (Acute) Atrial fibrillation with RVR (Acute) HLD (hyperlipidemia) (Acute) You will use the following diet at home:: No restrictions Your food should be the consistency of: Regular Your liquids should be the consistency of: Regular/Thin Discharge Activity: Return to Normal Activity Weight Bearing Status: Full weight bearing Allergies/Adverse Reactions: Allergies latex Allergy (Verified 02/19/18 10:21) Hives Medications to take at Discharge Levothyroxine Sodium [Synthroid] 175 mcg PO DAILY 04/01/17 Aspirin E.C. [Ecotrin] 81 mg PO DAILY@0800 tablet 02/23/18 Atorvastatin Calcium [Lipitor] 20 mg PO QHS #30 tablet 02/23/18 Flecainide [Tambocor] 100 mg PO BID #60 tablet 02/23/18 Metoprolol Tartrate [Lopressor (beta mehdi)] 50 mg PO BID #60 tablet 02/23/18 Rivaroxaban [Xarelto] 20 mg PO DINNER tablet 02/23/18 The following prescriptions were given: Atorvastatin Calcium [Lipitor] 20 mg PO QHS #30 tablet Flecainide [Tambocor] 100 mg PO BID #60 tablet Metoprolol Tartrate [Lopressor (beta mehdi)] 50 mg PO BID #60 tablet Primary Care Physician: Rae Simms NP-C [Primary Care Provider] - Please follow up with your Primary Care Physician in: in 2-3 weeks Test Results: Test results from this visit will be discussed in further detail at your follow- up appointment, if applicable. Please Follow Up With: Damon Coy MD When: as directed
[2018-02-23 11:00] VITALS: PULSE 73
--- NOTE | 2018-02-23 11:48 | PN.CARD_ITS ---
Subjectve: The patient has been awake and alert. He has been up and ambulating without difficulty. He has no new complaints with respect to chest discomfort, d ifficulty breathing, or palpitations. Objective: Vital Signs Temp Pulse Resp BP Pulse Ox 97.4 F L 73 16 103/74 95 02/23/18 09:09 02/23/18 11:00 02/23/18 09:09 02/23/18 09:09 02/23/18 09:09 Oxygen Delivery Method Room Air Weight: 252 lb Body Mass Index (BMI) 29.9 Intake and Output for Last 24 Hours 02/21/18 02/22/18 02/23/18 23:59 23:59 23:59 Intake Total 518 / 518 2450 / 2450 50 / 50 Balance 518 / 518 2450 / 2450 50 / 50 General: Awake, Alert, Oriented x 3, Cooperative, No Acute Distress HEENT: Atraumatic, Normocephalic, PERRL, EOMI, Sclera Non Icteric Oral: Moist Mucosa Neck: Supple, Good ROM, No JVD Lungs: Clear to auscultation Cardiovascular: Irregular Rhythm, Normal S1, Normal S2 Abdomen: Bowel Sounds Present, Soft, Non Tender Extremities: No Cyanosis, No Clubbing, No edema Neurological: No Focal Motor or Sensory Deficit Psych/Mental Status: Appropriate Rhythm: Atrial fibrillation EKG: Atrial fibrillation; left axis deviation; no acute ECG changes Medical Necessity - Tobacco Use Smoking Status: Never smoker Tobacco Use: Non-smoker Assessment/Plan 1. Atrial fibrillation At the present time he is being monitored. He will continue medical management. This will include rate limiting therapy. As he does not appear to have any angiographically significant CAD he can be placed on antiarrhythmic therapy such as flecainide/Tambocor. He will continue oral anticoagulant therapy. At the present time as he appears to be tolerating his medications without any obvious adverse event he will be released home for continued outpatient cardiova scular follow-up. This will include, unless he has spontaneous conversion to sinus rhythm, a future attempt at synchronized biphasic DC cardioversion to regain sinus rhythm. 2. CAD His cardiac catheterization suggested mild luminal irregularities. He will continue risk factor evaluation care as deemed appropriate. 3. Hyperlipidemia His lipids are elevated. He was agreeable to reattempting low-dose statin therapy. 4. Hyperglycemia The patient reportedly has a history of hyperglycemia. He will need to continue medical management. 5. Thyroid disorder The patient states that he was diagnosed with Graves' disease in the past. He states he was treated with radioactive iodine. He has been on medical management. Comment: The above was discussed and reviewed with patient, spouse, and the [facility] staff. This note was generated with [employer] dictation software. It may contain incorrect words, spelling, and punctuation that were not noted in checking the note before signing.
--- NOTE | 2018-02-23 19:19 | PCM.DC.SUM ---
Discharge Date and Diagnosis Date of Admission: 02/19/18 Date of Discharge: 02/23/18 - Primary Discharge Diagnosis #1 new onset atrial fibrillation with RVR #2 nonocclusive coronary artery disease #3 hypothyroidism #4 hyperlipidemia - Secondary Discharge Diagnosis Chronic Problems Hypothyroidism (Chronic) Hospital Course and Treatment Procedures: 2-D Echocardiogram, Cardiac catheterization Summary of Care Provided: The patient is a 77 year old M who was seen in the emergency room at [facility] [place] with a chief complaint of chest discomfort, swelling in his ankles and hands, and right shoulder discomfort. He also reported shortness of breath. He stated his shortness of breath has been going on for 1-2 months. He also reported a 10 pound weight gain over the past month. Workup in the emergency room included an EKG which showed atrial fibrillation with a rate of 109, chest x-ray revealed no acute disease, white blood cell count was normal, troponin was normal, beta natruretic peptide was slightly elevated at 126. Patient received metoprolol in the emergency room with improved heart rate, patient was placed and observation status on PCU for A. fib with RVR, he was seen in consultation by cardiology and an echocardiogram was obtained which showed preserved EF. Cardiac enzymes were cycled and these remained negative. Patient underwent a pharmacological nuclear stress test which showed possible ischemia, due to this, patient underwent a cardiac catheterization which showed nonocclusive coronary artery disease. Patient was made a full admission, placed on flecainide, and observed. He was placed on Xarelto and there were no complications during his hospitalization. On 02/23/18, patient was seen and examined: On examination he appeared in good health and spirits. Vital signs as documented. Skin warm and dry and without overt rashes. Neck without JVD. Lungs clear. Heart exam notable for irregular rhythm, normal sounds and absence of murmurs, rubs or gallops. Abdomen unremarkable and without evidence of organomegaly, masses, or abdominal aortic enlargement. Extremities nonedematous. Neuro: Cranial nerves II through XII are grossly intact, no focal motor deficits were noted. Psych: Patient was alert and oriented x3, he did not appear depressed or anxious. On 02/23/18, patient was seen and examined and felt to be stable for discharge home. - Physical Exam Vital Signs Temp Pulse Resp BP Pulse Ox 97.4 F L 73 16 103/74 95 02/23/18 09:09 02/23/18 11:00 02/23/18 09:09 02/23/18 09:09 02/23/18 09:09 Oxygen Delivery Method Room Air Weight: 114.305 kg Body Mass Index (BMI) 29.9 Intake and Output for Last 24 Hours 02/21/18 02/22/18 02/23/18 23:59 23:59 23:59 Intake Total 518 / 518 2450 / 2450 50 / 50 Balance 518 / 518 2450 / 2450 50 / 50 Discharge Activity: Return to Normal Activity Weight Bearing Status: Full weight bearing Home Medications: Medications to take at Discharge Levothyroxine Sodium [Synthroid] 175 mcg PO DAILY 04/01/17 Aspirin E.C. [Ecotrin] 81 mg PO DAILY@0800 tablet 02/23/18 Atorvastatin Calcium [Lipitor] 20 mg PO QHS #30 tablet 02/23/18 Flecainide [Tambocor] 100 mg PO BID #60 tablet 02/23/18 Metoprolol Tartrate [Lopressor (beta mehdi)] 50 mg PO BID #60 tablet 02/23/18 Rivaroxaban [Xarelto] 20 mg PO DINNER tablet 02/23/18 Following Prescrptions Were Given to Patient: Atorvastatin Calcium [Lipitor] 20 mg PO QHS #30 tablet Flecainide [Tambocor] 100 mg PO BID #60 tablet Metoprolol Tartrate [Lopressor (beta mehdi)] 50 mg PO BID #60 tablet Primary Care Physician: Rae Simms NP-C [Primary Care Provider] - Please follow up with your Primary Care Physician in: in 2-3 weeks Please Follow Up With: Damon Coy MD When: as directed Disposition: Home Minutes spent on discharge:: 32 Patient Condition:: Stable Medical Necessity - Tobacco Use Smoking Status: Never smoker Tobacco Use: Non-smoker Meaningful Use Info Meaningful Use Diagnoses (Choose all that apply): None applicable Code Visit Inpatient E&M: 81988 Disch Hosp
== END 2018-02-23 11:42 | disposition home or self-care (01) | DRG 287 ==
LOC: ED 11:04 → PCU 12:40
PROVIDERS: Internal Medicine Cardiovascular Disease; Admitting Provider Internal Medicine; Emergency Provider Emergency Medicine; Family Provider Nurse Practitioner; PCP Nurse Practitioner; Visit Provider Internal Medicine
DX: I48.91 Unspecified atrial fibrillation (principal); I25.10 Atherosclerotic heart disease of native coronary artery without angina pectoris; E78.5 Hyperlipidemia, unspecified; E03.8 Other specified hypothyroidism; Z86.39 Personal history of other endocrine, nutritional and metabolic disease
CPT/HCPCS: 36415; 71046; 73030; 78452; 80048; 80053; 80061; 81001; 82248; 82962; 83036; 83880; 84443; 84484; 85014; 85018; 85025; 85027; 85610; 85730; 93005; 93017; 93306; 93458; 99152; 99153; 99283; A9500; J7030; Q9957; A4216; C1769; C1894; C8929; J2785; Q9967

== ENCOUNTER → 2018-03-20 12:20 | Outpatient (CLI) | payer MEDICARE, SELFPAY ==
[2018-03-20 11:34] VITALS: BMI 29.9
[2018-03-20 13:51] LABS: Anion Gap 7 (5-15); BUN 19 mg/dL (7-18); BUN/Creat Ratio 17.8 RATIO (10-20); Calcium,Total 9.1 mg/dL (8.5-10.1); Chloride 105 mmol/L (98-107); Creatinine, Serum 1.07 mg/dL (0.70-1.30); EST Glomerular Filtration Rate 71 mL/min (>60); Est Glom Filt Rate - Afr Amer 86 mL/min (>60); Glucose 101 mg/dL (74-106); Potassium 4.3 mmol/L (3.5-5.1); Sodium Level 138 mmol/L (136-145)
== END ==
PROVIDERS: Family Provider Nurse Practitioner; PCP Nurse Practitioner; Referring Provider Internal Medicine Cardiovascular Disease; Visit Provider Internal Medicine Cardiovascular Disease
DX: I48.91 Unspecified atrial fibrillation (principal)
CPT/HCPCS: 36415; 80048

== ENCOUNTER 2018-03-25 10:47 | Day surgery (SDC) | payer MEDICARE, SELFPAY ==
[2018-03-20 11:34] VITALS: BMI 29.9
[2018-03-24 13:32] VITALS: BMI 30.3
--- NOTE | 2018-03-25 13:06 | PCM.OP.BLANK ---
Operative Report Date of Procedure: 03/25/18 CONSCIOUS SEDATION REPORT DATE OF SERVICE: March 25, 2018 BRIEF HISTORY OF PRESENT ILLNESS: The patient is a 77-year-old male who presents to [facility] for elective outpatient cardioversion due to underlying atrial fibrillation. The patient is currently anticoagulated on Xarelto. His last surface echocardiogram revealed an ejection fraction of approximately 55%. The patient has never undergone a previous cardioversion. He denies any known adverse reactions to anesthesia. He denies a history of obstructive sleep apnea. PHYSICAL EXAMINATION: VITAL SIGNS: Reviewed and were acceptable. GENERAL: The patient is a male, in no apparent distress, speaking in full sentences. HEENT: Normocephalic, atraumatic. Mucous membranes are moist and pink. Good mouth opening noted. Trachea is midline. MP II CHEST: S1, S2 irregularly irregular. No murmurs, rubs or gallops were noted. LUNGS: Clear to auscultation bilaterally without appreciable wheezes, rales or rhonchi. ABDOMEN: Soft, nontender, nondistended. Positive bowel sounds. EXTREMITIES: There is no clubbing, cyanosis or edema. ASA Class: II DESCRIPTION OF PROCEDURE: After confirmation of informed consent, the patient's anesthesia plan was reviewed in detail. Propofol was chosen. Risks and benefits were reviewed and the patient agreed to proceed. At 1247, the patient was given 80 mg of propofol. The patient achieved an appropriate level of sedation and was given a 200 joule synchronized cardioversion by Dr. Coy at the bedside. This was successful in achieving normal sinus rhythm. The patient was monitored until 1255, at which time he reached his baseline mental status and function. The patient tolerated the procedure well. COMPLICATIONS: None ESTIMATED BLOOD LOSS: None RECOMMENDATIONS: Okay to recover in usual fashion. Code Visit 9xxxx: Other Procedure See Report - [id number]
--- NOTE | 2018-03-25 13:31 | OP.PCM_ITS ---
Problem List (1) Atrial fibrillation with RVR Status: Acute Operative Report Date of Procedure: 03/25/18 Date: 03/25/2018 Procedure: Synchronized Biphasic DC Cardioversion Indications: Atrial fibrillation Consent: Per the Patient Anesthesia: per Dr. Lou of pulmonology and critical care medicine with Propofol 200 mg IV push total Procedure: Synchronized Biphasic DC Cardioversion: 200 J x1: Result: Sinus rhythm/sinus bradycardia Complications: no apparent complications This note was generated with [employer] dictation software. It may contain incorrect words, spelling, and punctuation that were not noted in checking the note before signing.
== END 2018-03-25 14:00 | disposition home or self-care (01) ==
LOC: CLSP 10:48
PROVIDERS: Family Provider Nurse Practitioner; PCP Nurse Practitioner; Referring Provider Internal Medicine Cardiovascular Disease; Visit Provider Internal Medicine Cardiovascular Disease
DX: I48.91 Unspecified atrial fibrillation (principal); I25.10 Atherosclerotic heart disease of native coronary artery without angina pectoris; E78.5 Hyperlipidemia, unspecified; E03.9 Hypothyroidism, unspecified
CPT/HCPCS: 92960; 93005; J7040

== ENCOUNTER → 2018-06-27 11:37 | Outpatient (CLI) | payer MEDICARE, SELFPAY ==
[2018-04-11 11:28] VITALS: BMI 30.3
--- NOTE | 2018-06-27 11:41 | RAD_ITS ---
STUDY: X-RAY CHEST REASON FOR EXAM: Male, 77 years old. Chest pain TECHNIQUE: PA and lateral views of the chest. COMPARISON: Chest x-ray 02/19/2018 FINDINGS: The lungs are clear and expanded. There is no demonstrated pleural abnormality. Normal size heart. Normal mediastinum and mackenzie. Normal visualized pulmonary arteries. Normal visualized aortic arch and descending thoracic aorta. Normal visualized thoracic spine. Normal visualized ribs, clavicles, and shoulders. There is no demonstrated abnormality of the visualized soft tissue structures of the upper abdomen. RAD/Chest PA and Lateral IMPRESSION: Normal x-ray examination of the chest. Electronically Signed: Michael Bryant, at 12:10 EDT Tel , Service support ,
[2018-06-27 12:52] LABS: Absolute Lymphocyte Count 3.88 X10^3/ul (0.83-4.51); Absolute Neutrophil Count 5.1 X10^3/uL (2.0-7.7); Basophil# 0.04 X10^3/uL; Basophil% 0.4 % (0-1); Eosinophil# 0.11 X10^3/uL; Hematocrit 43.1 % (40-54); Hemoglobin 14.6 g/dl (13.0-16.5); Lymphocyte # 3.88 X10^3/ul (4.0); Mean Corp Hgb Conc 33.9 g/gl (32-36); Mean Corpuscular Hgb 29.9 pg (27.0-32.0); Mean Corpuscular Volume 88.1 fL (80-94); Mean Platelet Vol. 10.5 fl (6.2-12.0); Monocyte# 1.16 X10^3/uL; Monocyte% 11.1 % (0-10); Neutrophil % 48.6 % (47-70); Platelet Count 252 K/mm3 (150-450); RBC Distribution Width CV 13.8 % (11.6-14.6); RBC Distribution Width SD 44.5 fl (35.1-43.9); Red Blood Count 4.89 M/mm3 (4.6-6.2); White Blood Count 10.5 K/mm3 (4.4-11.0)
[2018-06-27 13:14] LABS: POSITIVE COUNT NO; POSITIVE DIFFERENTIAL NO; POSITIVE MORPHOLOGY NO
[2018-06-27 13:18] LABS: CPK Total, Creatine Kinase 411 U/L (39-308)
[2018-06-27 13:20] LABS: D-Dimer Quantitative (DVT/PE) < 0.27 FEU/ug/m (0.27-0.49)
[2018-06-28 08:39] LABS: Myoglobin, Serum 169 ng/mL (28-72)
== END ==
PROVIDERS: Family Provider Nurse Practitioner; PCP Nurse Practitioner; Referring Provider Nurse Practitioner; Visit Provider Nurse Practitioner
DX: R07.9 Chest pain, unspecified (principal)
CPT/HCPCS: 71046; 82550; 83874; 84484; 85025; 85379; 87070; 87205

== ENCOUNTER → 2018-06-27 15:44 | Outpatient (CLI) | payer MEDICARE, SELFPAY ==
[2018-04-11 11:28] VITALS: BMI 30.3
--- NOTE | 2018-06-27 16:03 | ADUL_ITS ---
Reason For Study: R/O PSEUDO Procedure Technically difficult d/t pt pain tolerance and swelling of groin. 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 and measures .88 cm. There is no evidence of abnormal pulsatile flow within the CFV. Rt groin hematoma visualized without any doppler evidence of a neck or pseudo. Interpretation Summary Technically difficult examination Right common femoral artery 0.88cm with normal flow. No evidence for pseudoaneurym or fistula but finding consistent with an overlying hematoma based upon history is present. Clinical correlation is recommended Ordering Physician: Rae Simms Referring Physician: Rae Simms Performed By: Rossy Rust, JYOTI, RVT
== END ==
PROVIDERS: Family Provider Nurse Practitioner; PCP Nurse Practitioner; Referring Provider Nurse Practitioner; Visit Provider Nurse Practitioner
DX: R10.31 Right lower quadrant pain (principal); I73.9 Peripheral vascular disease, unspecified
CPT/HCPCS: 71046; 82550; 83874; 84484; 85025; 85379; 87070; 87205; 93926

== ENCOUNTER → 2018-07-01 12:26 | Outpatient (CLI) | payer MEDICARE, SELFPAY ==
[2018-04-11 11:28] VITALS: BMI 30.3
[2018-07-01 13:23] LABS: Albumin, Serum 3.9 g/dL (3.2-5.0); BUN 16 mg/dL (7-18); Calcium,Total 9.2 mg/dL (8.5-10.1); Chloride 105 mmol/L (98-107); Creatinine, Serum 1.23 mg/dL (0.70-1.30); EST Glomerular Filtration Rate 60 mL/min (>60); Est Glom Filt Rate - Afr Amer 73 mL/min (>60); Glucose 94 mg/dL (74-106); Phosphorus 3.5 mg/dL (2.5-4.9); Potassium 4.6 mmol/L (3.5-5.1); Sodium Level 140 mmol/L (136-145)
[2018-07-01 13:39] LABS: Absolute Lymphocyte Count 2.38 X10^3/ul (0.83-4.51); Absolute Neutrophil Count 5.4 X10^3/uL (2.0-7.7); Basophil# 0.03 X10^3/uL; Basophil% 0.3 % (0-1); Eosinophil# 0.27 X10^3/uL; Eosinophils% 2.9 % (0-5); Hemoglobin 14.3 g/dl (13.0-16.5); Lymphocyte # 2.38 X10^3/ul (4.0); Lymphocyte % 25.5 % (19-41); Mean Corp Hgb Conc 33.3 g/gl (32-36); Mean Corpuscular Hgb 28.9 pg (27.0-32.0); Mean Platelet Vol. 10.4 fl (6.2-12.0); Monocyte# 1.18 X10^3/uL; Monocyte% 12.6 % (0-10); Neutrophil # 5.36 X10^3/uL (2.7-7.7); Neutrophil % 57.3 % (47-70); Platelet Count 280 K/mm3 (150-450); RBC Distribution Width SD 43.3 fl (35.1-43.9); Red Blood Count 4.94 M/mm3 (4.6-6.2); White Blood Count 9.4 K/mm3 (4.4-11.0)
[2018-07-01 13:42] LABS: POSITIVE COUNT NO; POSITIVE DIFFERENTIAL NO; POSITIVE MORPHOLOGY NO
== END ==
PROVIDERS: Family Provider Nurse Practitioner; PCP Nurse Practitioner; Referring Provider Nurse Practitioner; Visit Provider Nurse Practitioner
DX: R58 Hemorrhage, not elsewhere classified (principal)
CPT/HCPCS: 80069; 85025

== ENCOUNTER → 2019-07-29 08:12 | Outpatient (CLI) | payer MEDICARE, SELFPAY ==
[2019-06-04 10:13] VITALS: BMI 30.1
[2019-07-29 09:16] LABS: Absolute Lymphocyte Count 3.41 X10^3/uL (0.83-4.51); Absolute Neutrophil Count 3.6 X10^3/uL (2.0-7.7); Basophil# 0.05 X10^3/uL; Basophil% 0.6 % (0-1); Eosinophil# 0.12 X10^3/uL; Eosinophils% 1.5 % (0-5); Hematocrit 46.6 % (40-54); Hemoglobin 14.9 g/dL (13.0-16.5); Lymphocyte # 3.41 X10^3/ul (4.0); Lymphocyte % 42.6 % (19-41); Mean Corpuscular Hgb 29.4 pg (27.0-32.0); Mean Corpuscular Volume 92.1 fL (80-94); Mean Platelet Vol. 10.3 fl (6.2-12.0); NRBC Flagged by Analyzer 0 % (0-5); Neutrophil # 3.55 X10^3/uL (2.7-7.7); Neutrophil % 44.3 % (47-70); Platelet Count 253 K/mm3 (150-450); RBC Distribution Width CV 13.2 % (11.6-14.6); RBC Distribution Width SD 44.7 fl (35.1-43.9); Red Blood Count 5.06 M/mm3 (4.6-6.2)
[2019-07-29 09:42] LABS: Hemoglobin A1c 5.6 % (3.8-5.6)
[2019-07-29 09:49] LABS: AST(SGOT) 29 U/L (15-37); Alanine Aminotransfer ALT/SGPT 45 U/L (16-61); Albumin, Serum 3.4 g/dL (3.2-5.0); Alkaline Phosphatase 60 U/L (45-117); Anion Gap 6 (5-15); BUN 15 mg/dL (7-18); BUN/Creat Ratio 14.4 RATIO (10-20); Chloride 107 mmol/L (98-107); Cholesterol 208 mg/dL (200); Creatinine, Serum 1.04 mg/dL (0.70-1.30); EST Glomerular Filtration Rate 73 mL/min (>60); Est Glom Filt Rate - Afr Amer 88 mL/min (>60); Globulin 3.4 g/dL (2.2-4.2); Glucose 103 mg/dL (74-106); High Density Lipoprotein 49 mg/dL; PSA,Total- Diagnostic 1.78 ng/mL (0.0-4.0); Potassium 4.4 mmol/L (3.5-5.1); Protein, Total 6.8 g/dL (6.4-8.2); Sodium Level 141 mmol/L (136-145); Thyroid Stim Hormone (TSH) 0.06 uIU/mL (0.358-3.74); Triglycerides 141 mg/dL; Very Low Density Lipoprotein 28 mg/dL (5-40)
[2019-07-29 10:32] LABS: Vitamin D,25 Hydroxy 25.9 ng/mL
== END ==
PROVIDERS: PCP Nurse Practitioner; Referring Provider Nurse Practitioner; Visit Provider Nurse Practitioner
DX: R73.01 Impaired fasting glucose (principal); E03.9 Hypothyroidism, unspecified; Z87.898 Personal history of other specified conditions; E55.9 Vitamin D deficiency, unspecified
CPT/HCPCS: 36415; 80053; 80061; 82306; 83036; 84153; 84443; 85025

== ENCOUNTER → 2019-11-05 06:50 | Outpatient (CLI) | payer MEDICARE, SELFPAY ==
[2019-08-12 14:58] VITALS: BMI 30.8
== END ==
PROVIDERS: PCP Nurse Practitioner; Referring Provider Nurse Practitioner; Visit Provider Nurse Practitioner
DX: E03.9 Hypothyroidism, unspecified (principal)
CPT/HCPCS: 36415; 84443

== ENCOUNTER → 2020-03-21 15:11 | Outpatient (CLI) | payer MEDICARE, SELFPAY ==
[2019-11-17 09:54] VITALS: BMI 30.8
[2020-03-21 17:13] LABS: T4 Free Direct 1.34 ng/dL (0.76-1.46); Thyroid Stim Hormone (TSH) 0.34 uIU/mL (0.358-3.74)
== END ==
PROVIDERS: PCP Nurse Practitioner; Referring Provider Internal Medicine Endocrinology, Diabetes & Metabolism; Visit Provider Internal Medicine Endocrinology, Diabetes & Metabolism
DX: E07.9 Disorder of thyroid, unspecified (principal); E89.0 Postprocedural hypothyroidism
CPT/HCPCS: 36415; 84439; 84443

== ENCOUNTER → 2020-08-17 09:15 | Outpatient (CLI) | payer MEDICARE, SELFPAY ==
[2020-05-02 10:02] VITALS: BMI 31.3
== END ==
PROVIDERS: PCP Nurse Practitioner; Referring Provider Internal Medicine Cardiovascular Disease; Visit Provider Internal Medicine Cardiovascular Disease
DX: I48.0 Paroxysmal atrial fibrillation (principal); R00.1 Bradycardia, unspecified
CPT/HCPCS: 93225; 93226

== ENCOUNTER → 2020-11-02 09:38 | Outpatient (CLI) | payer MEDICARE, SELFPAY ==
[2020-11-02 10:23] LABS: Absolute Lymphocyte Count 2.84 X10^3/uL (0.83-4.51); Absolute Neutrophil Count 3.7 X10^3/uL (2.0-7.7); Basophil# 0.06 X10^3/uL; Basophil% 0.8 % (0-1); Eosinophil# 0.11 X10^3/uL; Eosinophils% 1.4 % (0-5); Hematocrit 46.3 % (40-54); Lymphocyte # 2.84 X10^3/ul (0.83-4.51); Lymphocyte % 37.3 % (19-41); Mean Corp Hgb Conc 32.4 g/dL (32-36); Mean Corpuscular Hgb 28.5 pg (27.0-32.0); Mean Platelet Vol. 10.1 fl (6.2-12.0); Monocyte# 0.79 X10^3/uL; Monocyte% 10.4 % (0-10); NRBC Flagged by Analyzer 0 % (0-5); Neutrophil # 3.69 X10^3/uL (2.7-7.7); Neutrophil % 48.5 % (47-70); Platelet Count 242 K/mm3 (150-450); RBC Distribution Width CV 13.6 % (11.6-14.6); RBC Distribution Width SD 43.7 fl (35.1-43.9); Red Blood Count 5.26 M/mm3 (4.6-6.2); White Blood Count 7.6 K/mm3 (4.4-11.0)
[2020-11-02 10:48] LABS: Vitamin D,25 Hydroxy 36.4 ng/mL
[2020-11-02 11:04] LABS: AST(SGOT) 24 U/L (15-37); Alanine Aminotransfer ALT/SGPT 34 U/L (16-61); Albumin, Serum 3.4 g/dL (3.2-5.0); Alkaline Phosphatase 67 U/L (45-117); Anion Gap 4 (5-15); BUN 11 mg/dL (7-18); BUN/Creat Ratio 11.7 RATIO (10-20); Chloride 107 mmol/L (98-107); Cholesterol 220 mg/dL (200); Creatinine, Serum 0.94 mg/dL (0.70-1.30); EST Glomerular Filtration Rate 82 mL/min (>60); Est Glom Filt Rate - Afr Amer 99 mL/min (>60); Globulin 3.3 g/dL (2.2-4.2); Glucose 96 mg/dL (74-106); High Density Lipoprotein 51 mg/dL; Potassium 4.2 mmol/L (3.5-5.1); Protein, Total 6.7 g/dL (6.4-8.2); Sodium Level 139 mmol/L (136-145); Thyroid Stim Hormone (TSH) 0.68 uIU/mL (0.358-3.74); Triglycerides 209 mg/dL; Very Low Density Lipoprotein 42 mg/dL (5-40)
== END ==
PROVIDERS: PCP Nurse Practitioner; Visit Provider Nurse Practitioner
DX: E03.9 Hypothyroidism, unspecified (principal); E55.9 Vitamin D deficiency, unspecified; E78.00 Pure hypercholesterolemia, unspecified
CPT/HCPCS: 36415; 80053; 80061; 82306; 84443; 85025

== ENCOUNTER 2021-05-22 10:06 | Outpatient (CLI) | payer MEDICARE, SELFPAY ==
[2021-05-22 10:48] LABS: Absolute Lymphocyte Count 2.92 X10^3/uL (0.83-4.51); Absolute Neutrophil Count 3.9 X10^3/uL (2.0-7.7); Basophil# 0.04 X10^3/uL; Basophil% 0.5 % (0-1); Eosinophil# 0.15 X10^3/uL; Eosinophils% 1.9 % (0-5); Hemoglobin 15.9 g/dL (13.0-16.5); Lymphocyte # 2.92 X10^3/ul (0.83-4.51); Lymphocyte % 36.6 % (19-41); Mean Corp Hgb Conc 33.1 g/dL (32-36); Mean Corpuscular Hgb 28.8 pg (27.0-32.0); Mean Platelet Vol. 9.9 fl (6.2-12.0); Monocyte# 0.91 X10^3/uL; Monocyte% 11.4 % (0-10); NRBC Flagged by Analyzer 0 % (0-5); Neutrophil # 3.85 X10^3/uL (2.7-7.7); Neutrophil % 48.3 % (47-70); Platelet Count 251 K/mm3 (150-450); RBC Distribution Width CV 13.5 % (11.6-14.6); RBC Distribution Width SD 42.9 fl (35.1-43.9); Red Blood Count 5.52 M/mm3 (4.6-6.2)
[2021-05-22 11:17] LABS: Vitamin D,25 Hydroxy 88.5 ng/mL
[2021-05-22 11:27] LABS: ALB/GLOB Ratio 0.9 RATIO (0.9-2.4); AST(SGOT) 32 U/L (15-37); Alanine Aminotransfer ALT/SGPT 47 U/L (16-61); Albumin, Serum 3.4 g/dL (3.2-5.0); Alkaline Phosphatase 78 U/L (45-117); Anion Gap 5 (5-15); BUN 11 mg/dL (7-18); BUN/Creat Ratio 10.8 RATIO (10-20); Chloride 106 mmol/L (98-107); Cholesterol 210 mg/dL (200); Creatinine, Serum 1.02 mg/dL (0.70-1.30); EST Glomerular Filtration Rate 74 mL/min (>60); Est Glom Filt Rate - Afr Amer 90 mL/min (>60); Globulin 3.8 g/dL (2.2-4.2); Glucose 101 mg/dL (74-106); High Density Lipoprotein 52 mg/dL; Potassium 4.5 mmol/L (3.5-5.1); Protein, Total 7.2 g/dL (6.4-8.2); Sodium Level 140 mmol/L (136-145); Thyroid Stim Hormone (TSH) 0.34 uIU/mL (0.358-3.74); Triglycerides 170 mg/dL; Very Low Density Lipoprotein 34 mg/dL (5-40)
== END 2021-05-22 23:59 | disposition home or self-care (01) ==
LOC: LAB 10:09
PROVIDERS: PCP Nurse Practitioner; Referring Provider Internal Medicine Endocrinology, Diabetes & Metabolism; Visit Provider Internal Medicine Endocrinology, Diabetes & Metabolism
DX: E55.9 Vitamin D deficiency, unspecified (principal); E78.00 Pure hypercholesterolemia, unspecified; Z98.890 Other specified postprocedural states
CPT/HCPCS: 36415; 80053; 80061; 82306; 84439; 84443; 85025

== ENCOUNTER → 2022-03-09 | Outpatient (CLI) | payer MEDICARE, SELFPAY ==
[2022-03-09 10:34] LABS: T4 Free Direct 1.25 ng/dL (0.76-1.46)
== END | disposition home or self-care (01) ==
LOC: LAB 08:53
PROVIDERS: PCP Nurse Practitioner; Referring Provider Nurse Practitioner Family; Visit Provider Nurse Practitioner Family
DX: E89.0 Postprocedural hypothyroidism (principal)
CPT/HCPCS: 36415; 84439; 84443

== ENCOUNTER → 2022-05-17 | Outpatient (CLI) | payer MEDICARE, SELFPAY ==
[2022-05-17 08:15] LABS: Absolute Lymphocyte Count 4.02 X10^3/uL (0.83-4.51); Basophil# 0.07 X10^3/uL; Basophil% 0.8 % (0-1); Eosinophil# 0.18 X10^3/uL; Eosinophils% 1.9 % (0-5); Hematocrit 50.8 % (40-54); Hemoglobin 16.7 g/dL (13.0-16.5); Lymphocyte # 4.02 X10^3/ul (0.83-4.51); Lymphocyte % 43.3 % (19-41); Mean Corp Hgb Conc 32.9 g/dL (32-36); Mean Corpuscular Hgb 29.1 pg (27.0-32.0); Mean Corpuscular Volume 88.5 fL (80-94); Mean Platelet Vol. 9.5 fl (6.2-12.0); Monocyte# 0.86 X10^3/uL; Monocyte% 9.3 % (0-10); NRBC Flagged by Analyzer 0 % (0-5); Neutrophil # 4.03 X10^3/uL (2.7-7.7); Neutrophil % 43.4 % (47-70); Platelet Count 275 K/mm3 (150-450); RBC Distribution Width CV 13.2 % (11.6-14.6); RBC Distribution Width SD 42.6 fl (35.1-43.9); Red Blood Count 5.74 M/mm3 (4.6-6.2); White Blood Count 9.3 K/mm3 (4.4-11.0)
[2022-05-17 08:45] LABS: Vitamin D,25 Hydroxy 34.2 ng/mL
[2022-05-17 08:48] LABS: Hemoglobin A1c 5.6 % (3.8-5.6)
[2022-05-17 08:57] LABS: ALB/GLOB Ratio 1.1 RATIO (0.9-2.4); AST(SGOT) 31 U/L (15-37); Alanine Aminotransfer ALT/SGPT 44 U/L (16-61); Albumin, Serum 3.6 g/dL (3.2-5.0); Alkaline Phosphatase 79 U/L (45-117); Anion Gap 7 (5-15); BUN 14 mg/dL (7-18); BUN/Creat Ratio 11.1 RATIO (10-20); Calcium,Total 9.4 mg/dL (8.5-10.1); Chloride 105 mmol/L (98-107); Cholesterol 258 mg/dL (200); Creatinine, Serum 1.26 mg/dL (0.70-1.30); EST Glomerular Filtration Rate 58 mL/min (>60); Est Glom Filt Rate - Afr Amer 70 mL/min (>60); Globulin 3.4 g/dL (2.2-4.2); Glucose 115 mg/dL (74-106); High Density Lipoprotein 48 mg/dL; Potassium 4.3 mmol/L (3.5-5.1); Sodium Level 139 mmol/L (136-145); Triglycerides 220 mg/dL; Very Low Density Lipoprotein 44 mg/dL (5-40)
== END | disposition home or self-care (01) ==
LOC: LAB 07:49
PROVIDERS: PCP Internal Medicine; Referring Provider Internal Medicine Endocrinology, Diabetes & Metabolism; Visit Provider Internal Medicine Endocrinology, Diabetes & Metabolism
DX: I48.0 Paroxysmal atrial fibrillation (principal); E11.9 Type 2 diabetes mellitus without complications; E89.0 Postprocedural hypothyroidism; E78.2 Mixed hyperlipidemia; E55.9 Vitamin D deficiency, unspecified
CPT/HCPCS: 36415; 80053; 80061; 82306; 83036; 84439; 84443; 85025

== ENCOUNTER → 2022-08-21 | Outpatient (CLI) | payer MEDICARE, SELFPAY ==
--- NOTE | 2022-08-21 13:34 | RAD_ITS ---
STUDY: X-RAY - LUMBAR SPINE REASON FOR EXAM: Male, 81 years old. Chronic low back pain TECHNIQUE: 3 view(s) of the lumbar spine were obtained. COMPARISON: None FINDINGS: Normal lumbar lordosis. There is no substantial scoliosis. There is a normal alignment of the vertebrae. There is multilevel endplate spondylosis of the lumbar vertebrae. There is multi-level degenerative disc disease with multi-level disc space narrowing. There is no demonstrated fracture. There is atherosclerotic calcification of the abdominal aorta without a demonstrated aneurysm. RAD/Lumbar Spine 2 or 3 Views IMPRESSION: Degenerative changes of the spine, as detailed above. Electronically Signed: Alex Breen MD at 20:21 EDT ,
== END | disposition home or self-care (01) ==
LOC: RAD 13:33
PROVIDERS: PCP Internal Medicine; Referring Provider Internal Medicine; Visit Provider Internal Medicine
DX: M54.50 Low back pain, unspecified (principal)
CPT/HCPCS: 72100

== ENCOUNTER → 2022-09-15 | Outpatient (CLI) | payer MEDICARE, SELFPAY ==
--- NOTE | 2022-09-15 07:44 | MRI_ITS ---
HISTORY: low back pain into hips. TECHNIQUE: Multiplanar and multisequence MR images of the lumbar spine were obtained without intravenous contrast. 105 images. COMPARISON: XR 08/21/2022. FINDINGS: VERTEBRAE: Lumbar vertebral body heights maintained. Mild degenerative bone marrow endplate changes with small Schmorl''s nodes of L1 and L3. Chronic minimal anterior wedging of T12. 1.5 cm T12 vertebral body hemangioma incidentally noted. ALIGNMENT: No anterior or posterior subluxation. CONUS: Normal morphology and position of the conus medullaris at L1. INTERVERTEBRAL DISCS: T12-L1: Mild posterior disc protrusion without significant central canal stenosis or foraminal narrowing based on the sagittal images. L1-2: Very mild disc bulge with facet arthropathy resulting in minimal narrowing of the thecal sac and mild bilateral foraminal narrowing. L2-3: Mild posterior disc bulge osteophyte complex with facet arthropathy superimposed on a developmentally narrow spinal canal resulting in moderate central canal stenosis and bilateral foraminal narrowing. L3-4: Moderate posterior disc bulge osteophyte complex with facet arthropathy superimposed on a developmentally narrow spinal canal resulting in severe central canal stenosis and moderate bilateral foraminal narrowing. L4-5: Mild disc bulge with facet arthropathy superimposed on a developmentally narrow spinal canal resulting in moderate central canal stenosis and moderate-severe bilateral foraminal narrowing. L5-S1: No significant posterior disc protrusion or central canal stenosis. Facet arthropathy with mild right foraminal narrowing. SOFT TISSUES: Posterior subcutaneous edema. Incompletely imaged right renal cystic lesion. 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 Moderate spinal canal stenosis and bilateral foraminal narrowing at L2-3. Severe spinal canal stenosis and moderate bilateral foraminal narrowing of L3-4. Moderate spinal canal stenosis with moderate-severe bilateral foraminal narrowing of L4-5. Electronically Signed: Brandy Hampton MD at 15:29 EDT ,
== END | disposition home or self-care (01) ==
PROVIDERS: PCP Internal Medicine; Referring Provider Orthopaedic Surgery; Visit Provider Orthopaedic Surgery
DX: M48.061 Spinal stenosis, lumbar region without neurogenic claudication (principal)
CPT/HCPCS: 72148

== ENCOUNTER 2023-01-13 13:03 | Emergency (ER) | payer MEDICARE, SELFPAY ==
[2023-01-13 13:03] VITALS: BP 129/88; PULSE 95; RESP 18; TEMP 36.1; O2SAT 96; BMI 32.5
--- NOTE | 2023-01-13 13:25 | RAD_ITS ---
INDICATION: palpitations EXAMINATION/TECHNIQUE: X-RAY - XR Chest 1 View COMPARISON: June 27, 2018 and September 14, 2020 FINDINGS: LINES/DEVICES: None. LUNGS: There are grossly stable prominent interstitial markings within the lower lungs. No pneumothorax. MEDIASTINUM AND CARDIOVASCULAR STRUCTURES: There is cardiomegaly. Central airways and mediastinal contour are unremarkable. BONES AND SOFT TISSUES: Unremarkable. RAD/Chest 1 View (Portable) IMPRESSION: Cardiomegaly. Electronically Signed: Sheela Lozano MD at 13:54 EST ,
[2023-01-13 13:26] VITALS: BP 137/77; PULSE 39; RESP 15; O2SAT 94
[2023-01-13 13:29] LABS: Absolute Lymphocyte Count 3.95 X10^3/uL (0.83-4.51); Absolute Neutrophil Count 5.3 X10^3/uL (2.0-7.7); Basophil# 0.11 X10^3/uL; Eosinophil# 0.16 X10^3/uL; Eosinophils% 1.5 % (0-5); Hematocrit 51.8 % (40-54); Hemoglobin 16.8 g/dL (13.0-16.5); Lymphocyte # 3.95 X10^3/ul (0.83-4.51); Lymphocyte % 36.6 % (19-41); Mean Corp Hgb Conc 32.4 g/dL (32-36); Mean Corpuscular Volume 89.3 fL (80-94); Mean Platelet Vol. 9.9 fl (6.2-12.0); Monocyte% 10.2 % (0-10); NRBC Flagged by Analyzer 0 % (0-5); Neutrophil # 5.32 X10^3/uL (2.7-7.7); Neutrophil % 49.4 % (47-70); Platelet Count 296 K/mm3 (150-450); RBC Distribution Width CV 13.6 % (11.6-14.6); White Blood Count 10.8 K/mm3 (4.4-11.0)
--- NOTE | 2023-01-13 13:29 | EX.ED.DYSGE1 ---
HPI <NORMAN Baron - Last Filed: 01/13/23 18:47> History of Present Illness Chief Complaint: Palpitations Narrative Narrative: Patient presenting today due to concerns that he is in atrial fibrillation. He has a known history of A-fib, takes aspirin daily and Xarelto when he feels he is in A-fib. Last night and early this morning he felt like he was in A-fib, his heart rate was elevated, going as high as 120-130 bpm, he followed with Dr. Coy in cardiology and was told that if he goes into A-fib he can take extra metoprolol. This morning, he took 2 metoprolol's this morning, 1 last night, 1 amlodipine, 1 Xarelto, and 3 flecainide. Normally he takes half a tablet of metoprolol twice a day. He denies any chest pain, he reports that his chest feels,sore, but not painful. PMH includes hypertension, A-fib, HLD, and hypothyroidism. PFSH <NORMAN Baron - Last Filed: 01/13/23 18:47> [facility] Medical History Atherosclerotic heart disease of [place] coronary artery without angina pectoris Atrial fibrillation with RVR DM type 2 (diabetes mellitus, type 2) HLD (hyperlipidemia) Hypothyroidism Mixed hyperlipidemia New onset a-fib Obesity Paroxysmal atrial fibrillation Home Medications aspirin 81 mg tablet,delayed release (Adult Aspirin Regimen) 81 mg PO BID 06/04/19 [History Last Taken Unknown] omega-3 fatty acids 1,000 mg capsule (Fish Oil Concentrate) 2,000 mg PO DAILY 05/02/20 [History Last Taken Unknown] omeprazole 20 mg capsule,delayed release 20 mg PO .prn 06/29/21 [History Last Taken Unknown] Synthroid 175 mcg tablet (levothyroxine) 175 mcg PO .Mon-Sat #90 tabs 03/14/22 [Rx Last Taken Unknown] amlodipine 10 mg tablet 10 mg PO DAILY #90 tabs 05/07/22 [Rx Last Taken Unknown] flecainide 100 mg tablet 100 mg PO Q12H PRN atrial fibrillation #180 tabs 05/07/22 [Rx Last Taken Unknown] rivaroxaban 20 mg tablet (Xarelto) 20 mg PO DAILY PRN 05/07/22 [History Last Taken Unknown] fluticasone propionate 50 mcg/actuation nasal spray,suspension 1 spray intranasal DAILY PRN allergy symptoms #16 grams 05/23/22 [Rx Last Taken Unknown] metoprolol tartrate 25 mg tablet 12.5 mg (1/2 x 25 mg) PO BID This is a dose increase #90 tabs 09/10/22 [Rx Last Taken Unknown] Allergy/AdvReac Type Severity Reaction Status Date / Time latex Allergy Hives Verified 01/13/23 13:03 Family History Mother Diabetes CVA (cerebral vascular accident) Father Hypertension Surgical History History of appendectomy History of bilateral cataract extraction History of prostate surgery Status post cardiac catheterization (~02/21/18) Status post catheter ablation of atrial fibrillation (~06/24/18) Social History Smoking Status: Never smoker alcohol intake: never substance use type: does not use ROS <NORMAN Baron - Last Filed: 01/13/23 18:47> ROS ED Constitutional Constitutional ED: Denies chills or fever(s) Cardiovascular Cardiovascular: Reports palpitations; Denies chest pain Respiratory/Chest Respiratory/Chest: Denies cough or dyspnea Gastrointestinal Gastrointestinal: Denies abdominal pain, nausea or vomiting Musculoskeletal Musculoskeletal: Denies arthralgias or myalgias Neurologic Neurologic: Denies dizziness, paresthesias or weakness EXAM <NORMAN Baron - Last Filed: 01/13/23 18:47> Physical Exam Const Vital Signs: 01/13/23 13:03 01/13/23 13:26 01/13/23 13:26 Temperature 96.9 F L Temperature Source Temporal Pulse Rate 95 39 L Respiratory Rate 18 15 Blood Pressure 129/88 H 137/77 H Blood Pressure Mean 101 97 Pulse Ox 96 94 94 Oxygen Delivery Method Room Air Room Air Room Air 01/13/23 15:15 01/13/23 16:00 01/13/23 16:57 Temperature Temperature Source Pulse Rate 35 L 39 L 55 L Respiratory Rate 16 16 Blood Pressure 104/66 111/74 137/77 H Blood Pressure Mean 78 86 97 Pulse Ox 93 96 Oxygen Delivery Method Room Air Room Air 01/13/23 17:00 Temperature Temperature Source Pulse Rate Respiratory Rate 41 H Blood Pressure Blood Pressure Mean Pulse Ox 95 Oxygen Delivery Method Room Air Positive well nourished, well developed and no apparent distress General Appearance ED: well developed HEENT Reports normocephalic and head/scalp atraumatic Mouth ED: Yes moist mucous membranes normal Eyes PERRL and EOMs intact bilaterally Neck full ROM and supple Chest Wall inspection of chest normal Resp normal respiratory effort and clear to auscultation bilaterally Cardio regular rhythm Rate: bradycardia GI soft to palpation, non-tender, non-distended and no masses Back/Spine normal ROM and normal to inspection Extremity normal to inspection and full ROM Neuro oriented x3, CN's II-XII intact bilaterally, moves all extremities, no focal motor deficits and no sensory deficits noted Sensorium / Orientation: awake and alert Psych mental status grossly normal and thought process normal Skin no rashes or lesions noted and no wounds <Dr. Kingsley Velazquez MD - Last Filed: 01/13/23 17:56> Physical Exam Const Vital Signs: 01/13/23 13:03 01/13/23 13:26 01/13/23 13:26 Temperature 96.9 F L Temperature Source Temporal Pulse Rate 95 39 L Respiratory Rate 18 15 Blood Pressure 129/88 H 137/77 H Blood Pressure Mean 101 97 Pulse Ox 96 94 94 Oxygen Delivery Method Room Air Room Air Room Air 01/13/23 15:15 01/13/23 16:00 01/13/23 16:57 Temperature Temperature Source Pulse Rate 35 L 39 L 55 L Respiratory Rate 16 16 Blood Pressure 104/66 111/74 137/77 H Blood Pressure Mean 78 86 97 Pulse Ox 93 96 Oxygen Delivery Method Room Air Room Air 01/13/23 17:00 Temperature Temperature Source Pulse Rate Respiratory Rate 41 H Blood Pressure Blood Pressure Mean Pulse Ox 95 Oxygen Delivery Method Room Air MDM <NORMAN Baron - Last Filed: 01/13/23 18:47> [facility] MDM Narrative Medical decision making narrative: Patient presenting due to concerns for atrial fibrillation. He does have a history of paroxysmal A-fib, felt like his heart rate was elevated last this morning with a heart rate of around 120 bpm. He took 3 metoprolol, amlodipine, and 3 flecainide and now has a heart rate in the 30s. Blood pressure is stable, patient reports that he feels okay, just a little tired. He is not having any chest pain. Patient was observed for several hours, he was ambulated and did well. Lab unremarkable, including troponin. EKG sinus bradycardia. Blood pressure is stable at 137/77. Pulse is in the 50s which is normal for patient. He has been encouraged to take medication as prescribed and to not take any additional medications this evening. He is to follow-up with his PCP and will be discharged home in stable condition. He is comfortable with plan. I have personally performed a face to face assessment of the patient and have reviewed the DELILAH Note. I performed a substantive portion of the visit including all aspects of the following. My perkins findings include: History is 82-year-old male with history of intermittent A-fib. He believes he went A-fib last night. When he did that he took extra aconite times a total of 3 also extra metoprolol and amlodipine. He just feels weak. No chest pain. Exam is [well-appearing 82-year-old male. Vital signs stable and his heart rate is only 39 but currently is in a sinus bradycardia with a blood pressure of 137/77. HEENT exam unremarkable. Lungs clear. Heart bradycardic rate about 39. Abdomen soft nontender. Patient moving all 4 extremities. Nontender. Noted edema. No deformity. He is awake alert. Answering questions following commands.] Medical Decision Making [82-year-old male history of A-fib took his rate medications and extra dosages and now has sinus bradycardia. Currently stable.] Other additions or changes: [None] Exam patient is doing well at 5:55 PM. Heart rates in the 50s. Blood pressure is good. He got up and ambulated and did well. He and his are comfortable with him being discharged home. He will not take any further blood pressure or heart rate medications tonight. He will take his normal medications tomorrow. He will check his blood pressure and heart rate prior to going to bed tonight. Lab Data Labs: Laboratory Results - last 24 hr 01/13/23 13:20 WBC 10.8 RBC 5.80 Hgb 16.8 H Hct 51.8 MCV 89.3 MCH 29.0 MCHC 32.4 RDW Std Deviation 44.0 H RDW Coeff of Vincent 13.6 Plt Count 296 MPV 9.9 Immature Gran % (Auto) 1.300 H Neut % (Auto) 49.4 Lymph % (Auto) 36.6 Norman % (Auto) 10.2 H Eos % (Auto) 1.5 Baso % (Auto) 1.0 Absolute Neuts (auto) 5.3 Absolute Lymphs (auto) 3.95 Nucleated RBC % 0 Sodium 138 Potassium 4.4 Chloride 109 H Carbon Dioxide 23.0 Anion Gap 6 BUN 15 Creatinine 1.04 Estim Creat Clear Calc 66.63 Est GFR (MDRD) Af Amer 87 Est GFR (MDRD) Non-Af 72 BUN/Creatinine Ratio 14.4 Glucose 144 H Calcium 9.2 Troponin I High Sens 11 Radiography X-Ray: Read by ED Physician and Read by Radiologist Diagnostic Testing: Clinical Impression(s) from Imaging Studies Chest X-Ray 01/13/23 13:25 IMPRESSION: Cardiomegaly. Electronically Signed: Sheela Lozano MD at 13:54 EST , <Dr. Kingsley Velazquez MD - Last Filed: 01/13/23 17:56> [facility] MDM Narrative Medical decision making narrative: I have personally performed a face to face assessment of the patient and have reviewed the DELILAH Note. I performed a substantive portion of the visit including all aspects of the following. My perkins findings include: History is 82-year-old male with history of intermittent A-fib. He believes he went A-fib last night. When he did that he took extra aconite times a total of 3 also extra metoprolol and amlodipine. He just feels weak. No chest pain. Exam is [well-appearing 82-year-old male. Vital signs stable and his heart rate is only 39 but currently is in a sinus bradycardia with a blood pressure of 137/77. HEENT exam unremarkable. Lungs clear. Heart bradycardic rate about 39. Abdomen soft nontender. Patient moving all 4 extremities. Nontender. Noted edema. No deformity. He is awake alert. Answering questions following commands.] Medical Decision Making [82-year-old male history of A-fib took his rate medications and extra dosages and now has sinus bradycardia. Currently stable.] Other additions or changes: [None] Exam patient is doing well at 5:55 PM. Heart rates in the 50s. Blood pressure is good. He got up and ambulated and did well. He and his are comfortable with him being discharged home. He will not take any further blood pressure or heart rate medications tonight. He will take his normal medications tomorrow. He will check his blood pressure and heart rate prior to going to bed tonight. History & Record Review Discussion w/independent historian: Patient and Family Additional record(s) reviewed:: Prior inpatient record, Prior outpatient record, Prior ED visit and Prior labs Lab Data Attestation: I reviewed the patient's lab results. Lab results narrative: CBC shows a white count of 10. H&H is 16 and 51. Platelets 296. Labs: Laboratory Results - last 24 hr 01/13/23 13:20 WBC 10.8 RBC 5.80 Hgb 16.8 H Hct 51.8 MCV 89.3 MCH 29.0 MCHC 32.4 RDW Std Deviation 44.0 H RDW Coeff of Vincent 13.6 Plt Count 296 MPV 9.9 Immature Gran % (Auto) 1.300 H Neut % (Auto) 49.4 Lymph % (Auto) 36.6 Norman % (Auto) 10.2 H Eos % (Auto) 1.5 Baso % (Auto) 1.0 Absolute Neuts (auto) 5.3 Absolute Lymphs (auto) 3.95 Nucleated RBC % 0 Sodium 138 Potassium 4.4 Chloride 109 H Carbon Dioxide 23.0 Anion Gap 6 BUN 15 Creatinine 1.04 Estim Creat Clear Calc 66.63 Est GFR (MDRD) Af Amer 87 Est GFR (MDRD) Non-Af 72 BUN/Creatinine Ratio 14.4 Glucose 144 H Calcium 9.2 Troponin I High Sens 11 Radiography Chest X-Ray - ED: 1 View, Read by ED Physician, Heart, Lungs, Bony Structures, No Acute Disease and Chronic Changes Diagnostic Testing: Clinical Impression(s) from Imaging Studies Chest X-Ray 01/13/23 13:25 IMPRESSION: Cardiomegaly. Electronically Signed: Sheela Lozano MD at 13:54 EST , Chest x-ray, portable, single view shows chronic changes no acute process. Rhythm Strip Rhythm Strip: Sinus bradycardia Rate: 39 Ectopy: None EKG Initial EKG: Attestation: I personally reviewed and interpreted this EKG as follows: Interpretation: No Acute Injury Pattern and Sinus Bradycardia Comments: Sinus bradycardia rate of 39 no acute signs of [place] or ischemia. No signs of heart block. Discharge Plan Triage Chief Complaint: Palpitations ED Midlevel Provider: [facility] ED Provider: Kingsley Velazquez Dx/Rx/DC Orders Clinical Impression: Bradycardia, Paroxysmal atrial fibrillation Instructions: ED Bradycardia Prescriptions: No Action omega-3 fatty acids [Fish Oil Concentrate] 1,000 mg capsule 2,000 mg PO DAILY aspirin [Adult Aspirin Regimen] 81 mg tablet,delayed release (DR/EC) 81 mg PO BID Xarelto 20 mg tablet 20 mg PO DAILY PRN Rx Instructions: must administer with evening meal amlodipine 10 mg tablet 10 mg PO DAILY Qty: 90 3RF flecainide 100 mg tablet 100 mg PO Q12H PRN (Reason: atrial fibrillation) Qty: 180 4RF omeprazole 20 mg capsule,delayed release(DR/EC) 20 mg PO .prn levothyroxine [Synthroid] 175 mcg tablet 175 mcg PO .Mon-Sat Qty: 90 1RF fluticasone propionate 50 mcg/actuation spray,suspension 1 spray intranasal DAILY PRN (Reason: allergy symptoms) Qty: 16 2RF Rx Instructions: administer into each nostril metoprolol tartrate 25 mg tablet 12.5 mg PO BID Qty: 90 3RF Primary Care Provider: Hailey Knight Referrals: Hailey Knight MD [Primary Care Provider] - Activity Restrictions/Additional Instructions: Only take your regular medication doses starting tomorrow, do not take any additional medications today. Return for any worsening of your symptoms. Disposition Disposition: Home, Self Care Discharge Date/Time: 01/13/23 18:11
[2023-01-13 13:49] LABS: Anion Gap 6 (5-15); BUN 15 mg/dL (7-18); BUN/Creat Ratio 14.4 RATIO (10-20); Calcium,Total 9.2 mg/dL (8.5-10.1); Chloride 109 mmol/L (98-107); Creatinine, Serum 1.04 mg/dL (0.70-1.30); EST Glomerular Filtration Rate 72 mL/min (>60); Est Glom Filt Rate - Afr Amer 87 mL/min (>60); Estimated Creatinine Clearance 66.63 ml/min; Glucose 144 mg/dL (74-106); Potassium 4.4 mmol/L (3.5-5.1); Sodium Level 138 mmol/L (136-145); Troponin-I HS 11 pg/mL (3.0-78.0)
[2023-01-13 15:15] VITALS: BP 104/66; PULSE 35; RESP 16; O2SAT 93
[2023-01-13 16:00] VITALS: BP 111/74; PULSE 39; RESP 16; O2SAT 96
[2023-01-13 16:57] VITALS: BP 137/77; PULSE 55
[2023-01-13 17:00] VITALS: RESP 41; O2SAT 95
== END 2023-01-13 18:11 | disposition home or self-care (01) ==
PROVIDERS: Physician Assistant; Emergency Provider Emergency Medicine; PCP Internal Medicine; Visit Provider Emergency Medicine
DX: I48.0 Paroxysmal atrial fibrillation (principal); E11.9 Type 2 diabetes mellitus without complications; I10 Essential (primary) hypertension; I25.10 Atherosclerotic heart disease of native coronary artery without angina pectoris; E78.2 Mixed hyperlipidemia; R00.1 Bradycardia, unspecified; Z79.01 Long term (current) use of anticoagulants; Z79.82 Long term (current) use of aspirin; Z79.899 Other long term (current) drug therapy; Z90.49 Acquired absence of other specified parts of digestive tract
CPT/HCPCS: 71045; 80048; 84484; 85025; 93005; 99284

== ENCOUNTER → 2023-06-20 | Outpatient (CLI) | payer MEDICARE, SELFPAY ==
--- NOTE | 2023-06-21 13:27 | STRESSREP ---
Stress Test Report Date: 06/20/2023 Procedure: Pharmacologic stress nuclear imaging study Indications: Preoperative evaluation Consent: Per the patient Procedure: The patient underwent pharmacologic (Regadenoson) evaluation with a peak heart rate of 98 beats per minute (72%predicted maximal heart rate) and a peak blood pressure of 138/80 mmHg. The baseline ECG demonstrated normal sinus rhythm. EKG during lexiscan infusion revealed no significant ischemic changes. EKG post infusion revealed no significant ischemic changes [There were no cardiac dysrhythmias pretest, during pharmacologic infusion, or recovery]. [There was no complaint of chest discomfort during pharmacologic infusion or recovery]. The examination was discontinued secondary to completion of protocol. Impression: 1. Lexiscan stress test test is negative for Lexiscan infusion induced EKG changes of ischemia. 2. Lexiscan stress test test is negative for Lexiscan infusion induced chest pain. 3. Results of the nuclear portion of the test is as below Myocardial perfusion imaging study: Technique: The patient was injected with 14.9 millicuries of technetium 99m Cardiolite and subsequently rest SPECT Cardiolite nuclear imaging was obtained in the horizontal long, vertical long, and short axis views. The patient underwent pharmacologic [Regadenoson 0.4mg] evaluation. Please see above for details. The patient was injected with 44.7 millicuries of technetium 99m Cardiolite and subsequently stress SPECT Cardiolite nuclear imaging was obtained in the horizontal long, vertical long, and short axis views. A gated Cardiolite study at peak stress was obtained. Interpretation: Rest and stress SPECT Cardiolite nuclear imaging status post realignment, normalization, and attenuation correction demonstrate no evidence of significant ischemia or infarction. Gated images reveal no significant regional wall motion abnormalities. The reported LVEF is 63%. Impression: 1. There is no evidence of significant ischemia or infarction. 2. Estimated ejection fraction is 63%. This note was generated with [employer] software. It may contain incorrect words, spelling, and punctuation that were not noted in checking the note before signing.
== END | disposition home or self-care (01) ==
PROVIDERS: PCP Nurse Practitioner Family; Referring Provider Physician Assistant Medical; Visit Provider Physician Assistant Medical
DX: I25.10 Atherosclerotic heart disease of native coronary artery without angina pectoris (principal)
CPT/HCPCS: 78452; 93017; A9500; A4216; J2785

== ENCOUNTER → 2023-07-03 | Outpatient (CLI) | payer MEDICARE, SELFPAY ==
[2023-07-03 08:07] LABS: ALB/GLOB Ratio 1.1 RATIO (0.9-2.4); AST(SGOT) 25 U/L (15-37); Alanine Aminotransfer ALT/SGPT 27 U/L (16-61); Albumin, Serum 3.5 g/dL (3.2-5.0); Alkaline Phosphatase 65 U/L (45-117); Anion Gap 3 (5-15); BUN 11 mg/dL (7-18); BUN/Creat Ratio 10.5 RATIO (10-20); Calcium,Total 9.1 mg/dL (8.5-10.1); Chloride 109 mmol/L (98-107); Cholesterol 265 mg/dL (200); Creatinine, Serum 1.05 mg/dL (0.70-1.30); EST Glomerular Filtration Rate 71 mL/min (>60); Est Glom Filt Rate - Afr Amer 86 mL/min (>60); Globulin 3.2 g/dL (2.2-4.2); Glucose 113 mg/dL (74-106); High Density Lipoprotein 51 mg/dL; Potassium 4.3 mmol/L (3.5-5.1); Protein, Total 6.7 g/dL (6.4-8.2); Sodium Level 140 mmol/L (136-145); T4 Free Direct 1.21 ng/dL (0.76-1.46); Thyroid Stim Hormone (TSH) 4.87 uIU/mL (0.358-3.74); Triglycerides 295 mg/dL; Very Low Density Lipoprotein 59 mg/dL (5-40)
== END | disposition home or self-care (01) ==
LOC: LAB 07:10
PROVIDERS: PCP Nurse Practitioner Family; Referring Provider Internal Medicine Endocrinology, Diabetes & Metabolism; Visit Provider Internal Medicine Endocrinology, Diabetes & Metabolism
DX: I48.0 Paroxysmal atrial fibrillation (principal); E11.65 Type 2 diabetes mellitus with hyperglycemia; I10 Essential (primary) hypertension; E78.2 Mixed hyperlipidemia; E03.8 Other specified hypothyroidism; E06.3 Autoimmune thyroiditis
CPT/HCPCS: 36415; 80053; 80061; 84439; 84443

== ENCOUNTER → 2023-11-04 | Outpatient (CLI) | payer MEDICARE, SELFPAY ==
[2023-11-04 16:06] LABS: Absolute Lymphocyte Count 3.35 X10^3/uL (0.83-4.51); Basophil# 0.08 X10^3/uL; Basophil% 0.9 % (0-1); Eosinophil# 0.22 X10^3/uL; Eosinophils% 2.5 % (0-5); Hematocrit 48.2 % (40-54); Hemoglobin 15.9 g/dL (13.0-16.5); Lymphocyte # 3.35 X10^3/ul (0.83-4.51); Lymphocyte % 38.4 % (19-41); Mean Corpuscular Hgb 29.2 pg (27.0-32.0); Mean Corpuscular Volume 88.4 fL (80-94); Mean Platelet Vol. 10.1 fl (6.2-12.0); Monocyte# 0.88 X10^3/uL; Monocyte% 10.1 % (0-10); NRBC Flagged by Analyzer 0 % (0-5); Neutrophil # 4.04 X10^3/uL (2.7-7.7); Neutrophil % 46.4 % (47-70); Platelet Count 274 K/mm3 (150-450); RBC Distribution Width CV 13.3 % (11.6-14.6); Red Blood Count 5.45 M/mm3 (4.6-6.2); White Blood Count 8.7 K/mm3 (4.4-11.0)
[2023-11-04 16:36] LABS: Cholesterol 264 mg/dL (200); High Density Lipoprotein 52 mg/dL; PSA,Total - Annual Screen 1.24 ng/mL (0.00-4.00); Triglycerides 243 mg/dL; Very Low Density Lipoprotein 49 mg/dL (5-40); Vitamin D,25 Hydroxy 24.5 ng/mL
== END | disposition home or self-care (01) ==
LOC: LAB 14:58
PROVIDERS: PCP Nurse Practitioner Family; Referring Provider Nurse Practitioner Family; Visit Provider Nurse Practitioner Family
DX: E78.00 Pure hypercholesterolemia, unspecified (principal); I48.91 Unspecified atrial fibrillation; E55.9 Vitamin D deficiency, unspecified; Z12.5 Encounter for screening for malignant neoplasm of prostate
CPT/HCPCS: 36415; 80061; 82306; 84153; 85025; G0103

== ENCOUNTER → 2023-12-25 | Outpatient (CLI) | payer MEDICARE, SELFPAY ==
[2023-12-25 11:58] LABS: T4 Free Direct 1.17 ng/dL (0.76-1.46)
== END | disposition home or self-care (01) ==
LOC: LAB 10:48
PROVIDERS: PCP Nurse Practitioner Family; Referring Provider Internal Medicine Endocrinology, Diabetes & Metabolism; Visit Provider Internal Medicine Endocrinology, Diabetes & Metabolism
DX: E03.9 Hypothyroidism, unspecified (principal)
CPT/HCPCS: 36415; 84439; 84443

== ENCOUNTER 2024-05-25 11:56 | Emergency (ER) | payer MEDICARE, SELFPAY ==
[2024-05-25 11:57] VITALS: BP 145/84; PULSE 108; RESP 16; TEMP 36.7; O2SAT 95; BMI 32.4
--- NOTE | 2024-05-25 12:39 | EKG12_ITS ---
Test Reason : Blood Pressure : */* mmHG Vent. Rate : 90 BPM Atrial Rate : * BPM P-R Int : * ms QRS Dur : 94 ms QT Int : 380 ms P-R-T Axes : * -50 58 degrees QTcB Int : 464 ms Atrial fibrillation Left anterior fascicular block Abnormal ECG Confirmed by ARTHUR RAMOS, GEO ([id number]), primer expeditor and drier CECILIO ROCHE ([id number]) on 05/26/2024 8:37:54 AM Referred By: Confirmed By: GEO GIBSON MD
--- NOTE | 2024-05-25 12:47 | EDS_ITS ---
HPI History of Present Illness Chief Complaint: Palpitations Informant: patient and spouse/S.O. Narrative Narrative: 83-year-old male presenting to the emergency room chief complaint of atrial fibrillation. Patient has a history of paroxysmal atrial fibrillation. He states he had prior catheter ablation at [facility]. He states that he has been going into A-fib about every 2 months. He was offered a second ablation and declined. He states that he can generally feel when he goes into A-fib. States that last night around 1 AM he felt himself go into A-fib. He developed chest pressure and generalized weakness. He took since 0100 hrs. a total of 300 mg of flecainide and a total of 62.5 mg of metoprolol as well as Xarelto. He states he does not normally take Xarelto because of nosebleeds. He reports his last dose of metoprolol was around 1100 hrs. He states he is still in A-fib. He states that typically when he does the pill in the pocket technique it typically resolves within several hours. He reports that he called anything cardiology this morning and came to emergency. [facility] Medical History Obesity Mixed hyperlipidemia Paroxysmal atrial fibrillation Atherosclerotic heart disease of [place] coronary artery without angina pectoris HLD (hyperlipidemia) DM type 2 (diabetes mellitus, type 2) Atrial fibrillation with RVR New onset a-fib Hypothyroidism Home Medications ?Medication ?Instructions ?Recorded ?Last Taken ?Type aspirin 81 mg tablet,delayed 81 mg PO BID 06/04/19 Unk nown History release (Adult Aspirin Regimen) omega-3 fatty acids 1,000 mg 2,000 mg PO DAILY 1 Unknown History capsule (Fish Oil Concentrate) omeprazole 20 mg capsule,delayed 20 mg PO .prn 2 Unknown History release fluticasone propionate 50 1 spray intranasal DAILY PRN 05/23/22 Unknown Rx mcg/actuation nasal allergy symptoms #16 grams spray,suspension flecainide 100 mg tablet 100 mg PO Q12H PRN atrial Unknown Rx fibrillation #90 tabs rivaroxaban 20 mg tablet (Xarelto) 20 mg PO DAILY PRN when in atrial 05/09/23 Unknown Rx fib #90 tabs cholecalciferol (vitamin D3) 125 125 mcg PO QDAY 12/15 Unknown History mcg (5,000 unit) capsule coenzyme Q10 200 mg capsule 200 mg PO QDAY 12/16/23 Un known History Synthroid 175 mcg tablet 175 mcg PO .M-Sat, / on [place] nday 12/26/23 Unknown Rx (levothyroxine) #90 tabs amlodipine 10 mg tablet 10 mg PO DAILY #90 TABLETS 0 03/20/24 Unknown Rx metoprolol tartrate 25 mg tablet 12.5 mg (/2 x 25 mg) PO TID This 05/18/24 Unknown Rx is a dose increase #135 tabs Allergy/AdvReac Type Severity Reaction Status Date / Time latex Allergy Hives Verified 05/07/23 11:15 Family History Mother Diabetes CVA (cerebral vascular accident) Father Hypertension Surgical History History of bilateral cataract extraction Status post catheter ablation of atrial fibrillation (~06/24/18) History of prostate surgery Status post cardiac catheterization (~02/21/18) History of appendectomy Social History (Updated 05/25/24 @ 13:00 by Melonie Moura) household members: spouse housing: house Smoking Status: Never smoker alcohol intake: never substance use type: does not use ROS ROS ED ROS Narrative Generalized weakness Constitutional Constitutional ED: Denies chills, fever(s) or weight loss Eyes Eyes: Denies change in vision or diplopia ENT ENT ED: Denies ear pain, rhinorrhea or sore throat Cardiovascular Cardiovascular: Reports chest pain, palpitations and racing heartbeat; Denies orthopnea Respiratory/Chest Respiratory/Chest: Denies cough, dyspnea or orthopnea Gastrointestinal Gastrointestinal: Denies abdominal pain, diarrhea, nausea or vomiting Genitourinary Genitourinary ED: Denies dysuria, hematuria or urinary frequency Musculoskeletal Musculoskeletal: Denies arthralgias or myalgias Integumentary Denies abscess or rash Neurologic Neurologic: Denies headache(s) or weakness Psychiatric Psychiatric: Denies anxiety, depression, suicidal ideation or suicidal thoughts Endocrine Endocrinology: Denies polydipsia, polyphagia or polyuria Allergic/Immunologic Allergic/Immunologic ED: Denies mouth swelling, tongue swelling or urticaria EXAM Physical Exam Const Vital Signs: 05/25/24 11:57 05/25/24 12:59 05/25/24 12:59 Temperature 98.1 F Temperature Source Temporal Pulse Rate 108 H 96 Respiratory Rate 16 20 H Respiratory Effort Short of Breath Blood Pressure 145/84 H 120/76 Blood Pressure Mean 104 90 Pulse Ox 95 98 Oxygen Delivery Method Room Air 05/25/24 13:00 05/25/24 14:00 05/25/24 15:00 Temperature Temperature Source Pulse Rate 96 98 60 Respiratory Rate 18 19 H 18 Respiratory Effort Blood Pressure 123/98 H 140/87 H 128/77 H Blood Pressure Mean 106 104 94 Pulse Ox 98 98 98 Oxygen Delivery Method 05/25/24 15:15 Temperature 98.7 F Temperature Source Pulse Rate 60 Respiratory Rate 18 Respiratory Effort Blood Pressure 128/77 H Blood Pressure Mean 94 Pulse Ox 98 Oxygen Delivery Method Positive well nourished and well developed General Appearance ED: well developed HEENT Reports normocephalic, head/scalp atraumatic and moist mucous membranes Eyes PERRL and EOMs intact bilaterally Neck no lymphadenopathy, supple and no JVD Resp normal respiratory effort and clear to auscultation bilaterally Cardio no murmurs Rhythm: abnormal rhythm irregularly irregular GI normal to inspection, nondistended, normoactive bowel sounds and non-tender Palpation: soft Back/Spine no CVA tenderness and normal ROM Extremity normal to inspection General Extremety ED: Negative for edema General Extremity: Negative for edema Neuro oriented x3 and CN's II-XII intact bilaterally Sensorium / Orientation: alert Motor Exam: strength 5/5 throughout Psych mental status grossly normal Mood & Affect: Negative for depressed or tearful Skin no rashes or lesions noted and no wounds MDM MDM MDM Narrative Medical decision making narrative: Differential diagnosis includes but not limited to cardiac dysrhythmia electrolyte abnormalities congestive heart failure acute coronary syndrome EKG confirms atrial fibrillation. Basic blood work showed a normal troponin and magnesium. Normal potassium sodium 139. Hemoglobin 17.7. My depend interpretation of the chest x-ray is no acute process. No obvious congestive heart failure findings. I discussed the case with cardiology. I went back and reevaluated the patient and we were going over different approaches when he converted spontaneously to a sinus rhythm. He was in atrial fibrillation per his account for about 13-1/2 hours. At this point patient will be discharged home. I would recommend continuing the Xarelto however he has reservations because of nosebleeds. I would recommend him continuing his metoprolol. We called and were able to get him a cardiology appointment on Saturday. He understands that A-fib may come back. I advised him that I would like him to discuss his flecainide use and further treatment for A-fib with cardiology. History & Record Review Discussion w/independent historian: Patient and Significant other Lab Data Attestation: I reviewed the patient's lab results. Labs: Laboratory Results - last 24 hr 05/25/24 13:10 WBC 8.9 RBC 6.16 Hgb 17.7 H Hct 52.3 MCV 84.9 MCH 28.7 MCHC 33.8 RDW Std Deviation 41.0 RDW Coeff of Vincent 13.4 Plt Count 290 MPV 10.2 Immature Gran % (Auto) 1.900 H Neut % (Auto) 61.1 Lymph % (Auto) 26.4 Addison % (Auto) 8.4 Eos % (Auto) 1.2 Baso % (Auto) 1.0 Absolute Neuts (auto) 5.4 Absolute Lymphs (auto) 2.34 Nucleated RBC % 0 Sodium 139 Potassium 4.3 Chloride 105 Carbon Dioxide 20.8 L Anion Gap 13 BUN 10 Creatinine 0.92 Estim Creat Clear Calc 85.82 Est GFR (MDRD) Non-Af 82 BUN/Creatinine Ratio 10.9 Glucose 121 H Calcium 9.8 Magnesium 2.1 Troponin T High Sens 18 Radiography Diagnostic Testing: Clinical Impression(s) from Imaging Studies Chest X-Ray 05/25/24 12:55 IMPRESSION: No acute process detected Reading [facility] EKG Initial EKG: Attestation: I personally reviewed and interpreted this EKG as follows: Interpretation: Atrial Fibrillation Prior EKG tracings: available for review Follow-up EKG: Attestation: I personally reviewed and interpreted this EKG as follows: Comments: Sinus bradycardia ventricular rate of 53 bpm Management Discussion w/another healthcare provider: [employer] Beauty Advisor (Dr Mendoza) Discharge Plan Triage Chief Complaint: Palpitations ED Provider: Sriram Spence Dx/Rx/DC Orders Clinical Impression: Paroxysmal atrial fibrillation Instructions: AFib Prescriptions: No Action omega-3 fatty acids [Fish Oil Concentrate] 1,000 mg capsule 2,000 mg PO DAILY aspirin [Adult Aspirin Regimen] 81 mg tablet,delayed release (DR/EC) 81 mg PO BID omeprazole 20 mg capsule,delayed release(DR/EC) 20 mg PO .prn cholecalciferol (vitamin D3) 125 mcg (5,000 unit) capsule 125 mcg PO QDAY coenzyme Q10 200 mg capsule 200 mg PO QDAY fluticasone propionate 50 mcg/actuation spray,suspension 1 spray intranasal DAILY PRN (Reason: allergy symptoms) Qty: 16 2RF Rx Instructions: administer into each nostril Xarelto 20 mg tablet 20 mg PO DAILY PRN (Reason: when in atrial fib) Qty: 90 3RF Rx Instructions: must administer with evening meal flecainide 100 mg tablet 100 mg PO Q12H PRN (Reason: atrial fibrillation) Qty: 90 3RF levothyroxine [Synthroid] 175 mcg tablet 175 mcg PO .M-Sat, / on Saturday Qty: 90 3RF amlodipine 10 mg tablet 10 mg PO DAILY Qty: 90 3RF metoprolol tartrate 25 mg tablet 12.5 mg PO TID Qty: 135 3RF Primary Care Provider: Dorota Carvalho Referrals: Orlando Mendoza MD [Med Staff - Active Staff] - (on Saturday as discussed) Dorota Carvalho [employer] DESIGNER-C [Primary Care Provider] - Print Language: Italian Disposition Disposition: Home, Self Care Discharge Date/Time: 05/25/24 15:16
--- NOTE | 2024-05-25 12:55 | RAD_ITS ---
PROCEDURE: CHEST 1 VIEW (PORTABLE) 05/25/2024 REASON FOR EXAM: CHEST PAIN TECHNIQUE: Frontal view of the chest. COMPARISON: Chest radiograph 01/13/2023 FINDINGS: Hardware: None. Heart: Normal size Lungs: No consolidating airspace disease. Accentuation of interstitium from AP technique. Bones: Unremarkable Other: RAD/Chest 1 View (Portable) IMPRESSION: No acute process detected Reading [facility]
[2024-05-25 12:59] VITALS: BP 120/76; PULSE 96; RESP 20; O2SAT 98
[2024-05-25 13:00] VITALS: BP 123/98; PULSE 96; RESP 18; O2SAT 98
[2024-05-25 13:31] LABS: Absolute Lymphocyte Count 2.34 X10^3/uL (0.83-4.51); Absolute Neutrophil Count 5.4 X10^3/uL (2.0-7.7); Basophil# 0.09 X10^3/uL; Eosinophil# 0.11 X10^3/uL; Eosinophils% 1.2 % (0-5); Hematocrit 52.3 % (40-54); Hemoglobin 17.7 g/dL (13.0-16.5); Lymphocyte # 2.34 X10^3/ul (0.83-4.51); Lymphocyte % 26.4 % (19-41); Mean Corp Hgb Conc 33.8 g/dL (32-36); Mean Corpuscular Hgb 28.7 pg (27.0-32.0); Mean Corpuscular Volume 84.9 fL (80-94); Mean Platelet Vol. 10.2 fl (6.2-12.0); Monocyte# 0.75 X10^3/uL; Monocyte% 8.4 % (0-10); NRBC Flagged by Analyzer 0 % (0-5); Neutrophil # 5.42 X10^3/uL (2.7-7.7); Neutrophil % 61.1 % (47-70); Platelet Count 290 K/mm3 (150-450); RBC Distribution Width CV 13.4 % (11.6-14.6); Red Blood Count 6.16 M/mm3 (4.6-6.2); White Blood Count 8.9 K/mm3 (4.4-11.0)
[2024-05-25 13:37] LABS: Anion Gap 13 (5-15); BUN 10 mg/dL (4-19); BUN/Creat Ratio 10.9 RATIO (10-20); Calcium,Total 9.8 mg/dL (7.6-11.0); Carbon Dioxide 20.8 mmol/L (21.0-32.0); Chloride 105 mmol/L (98-108); Creatinine, Serum 0.92 mg/dL (0.70-1.20); EST Glomerular Filtration Rate 82 (>60); Estimated Creatinine Clearance 85.82 ml/min (50-250); Glucose 121 mg/dL (70-99); Magnesium 2.1 mg/dL (1.5-2.2); Potassium 4.3 mmol/L (3.3-5.1); Sodium Level 139 mmol/L (133-145); Troponin T High Sensitivity 18 ng/L (<=22)
[2024-05-25 14:00] VITALS: BP 140/87; PULSE 98; RESP 19; O2SAT 98
--- NOTE | 2024-05-25 14:42 | EKG12_ITS ---
Test Reason : REPEAT Blood Pressure : */* mmHG Vent. Rate : 53 BPM Atrial Rate : 53 BPM P-R Int : 206 ms QRS Dur : 88 ms QT Int : 472 ms P-R-T Axes : 56 -39 23 degrees QTcB Int : 442 ms Sinus bradycardia Left axis deviation Abnormal ECG Confirmed by ARTHUR RAMOS, GEO ([id number]), publishing editor CECILIO ROCHE ([id number]) on 05/26/2024 8:38:06 AM Referred By: Confirmed By: GEO GIBSON MD
[2024-05-25 15:00] VITALS: BP 128/77; PULSE 60; RESP 18; O2SAT 98
[2024-05-25 15:15] VITALS: BP 128/77; PULSE 60; RESP 18; TEMP 37.1; O2SAT 98
== END 2024-05-25 15:16 | disposition home or self-care (01) ==
PROVIDERS: Emergency Provider Emergency Medicine; PCP Nurse Practitioner Family; Visit Provider Emergency Medicine
DX: I48.0 Paroxysmal atrial fibrillation (principal); E11.9 Type 2 diabetes mellitus without complications; E78.2 Mixed hyperlipidemia; I25.10 Atherosclerotic heart disease of native coronary artery without angina pectoris; E03.9 Hypothyroidism, unspecified
CPT/HCPCS: 71045; 80048; 83735; 84484; 85025; 93005; 99283

== ENCOUNTER → 2024-11-03 | Outpatient (CLI) | payer MEDICARE, SELFPAY ==
[2024-11-03 15:17] LABS: Hematocrit 46.5 % (40-54); Hemoglobin 15.5 g/dL (13.0-16.5); Immature Granulocytes Count 0.140 X10^3/uL (0.0-0.0); Mean Corp Hgb Conc 33.3 g/dL (32-36); Mean Corpuscular Volume 86.3 fL (80-94); Mean Platelet Vol. 10.4 fl (6.2-12.0); NRBC Flagged by Analyzer 0 % (0-5); Platelet Count 216 K/mm3 (150-450); RBC Distribution Width CV 14.3 % (11.6-14.6); RBC Distribution Width SD 45.3 fl (35.1-43.9); Red Blood Count 5.39 M/mm3 (4.6-6.2); White Blood Count 9.3 K/mm3 (4.4-11.0)
[2024-11-03 16:40] LABS: Color, Urine Yellow (Yellow); Glucose, Dipstick Normal (Normal); Ketone-Dipstick Negative (Negative); Leukocyte Esterase-Dipstick Negative /ul (Negative); Nitrite-Dipstick Negative (Negative); Occult Blood-Urine Negative /ul (Negative); Protein-Dipstick 15 mg/dl (Negative); Specific Gravity, Urine 1.020 (1.002-1.030); Urine Bilirubin Dipstick Negative (Negative)
[2024-11-03 17:17] LABS: Cholesterol 238 mg/dL (<=200); Low Density Lipoprotein Calc. 148 mg/dL; PSA,Total - Annual Screen 1.33 ng/mL (0.02-4.00); Triglycerides 202 mg/dL; Very Low Density Lipoprotein 40 mg/dL (5-40); Vitamin D,25 Hydroxy 31.6 ng/mL (30-100); cholesterol:hdl ratio screen 4.82
[2024-11-03 18:46] LABS: AST(SGOT) 38 U/L (<=37); Alanine Aminotransfer ALT/SGPT 29 U/L (<=46); Albumin, Serum 4.1 g/dL (3.4-4.8); Alkaline Phosphatase 69 U/L (40-129); Anion Gap 12 (5-15); BUN 13 mg/dL (4-19); BUN/Creat Ratio 13.7 RATIO (10-20); Calcium,Total 9.3 mg/dL (7.6-11.0); Carbon Dioxide 22.3 mmol/L (21.0-32.0); Chloride 106 mmol/L (98-108); Globulin 2.4 g/dL (2.2-4.2); Glucose 94 mg/dL (70-99); Potassium 4.7 mmol/L (3.3-5.1)
[2024-11-09 12:08] LABS: Vitamin D 1,25-Dihydroxy 94.9 pg/mL (24.8-81.5)
== END | disposition home or self-care (01) ==
LOC: LAB 14:36
PROVIDERS: PCP Nurse Practitioner Family; Referring Provider Internal Medicine Endocrinology, Diabetes & Metabolism; Visit Provider Internal Medicine Endocrinology, Diabetes & Metabolism
DX: E78.00 Pure hypercholesterolemia, unspecified (principal); E11.65 Type 2 diabetes mellitus with hyperglycemia; Z12.5 Encounter for screening for malignant neoplasm of prostate; I10 Essential (primary) hypertension; E55.9 Vitamin D deficiency, unspecified; E89.0 Postprocedural hypothyroidism; E66.09 Other obesity due to excess calories; Z68.34 Body mass index [BMI] 34.0-34.9, adult
CPT/HCPCS: 80053; 80061; 81002; 82306; 82652; 84153; 84443; 85025; G0103